=== PATIENT | female | born 1950 | race Caucasian/White ===

== ENCOUNTER → 2019-01-28 | Outpatient (CLI) | payer MEDICARE, OTHER ==
[2019-01-28 08:19] LABS: BASOPHILS % (AUTO) 1 % (0-10); EOSINOPHILS # (AUTO) 0.3 10^3/uL (0.0-0.3); EOSINOPHILS % (AUTO) 7 % (0-10); HEMATOCRIT 44 % (35-52); HEMOGLOBIN 14.8 G/DL (11.5-16.0); LYMPHOCYTES # (AUTO) 1.1 X 10^3 (1.0-4.0); LYMPHOCYTES % (AUTO) 22 % (12-44); MEAN CORPUSCULAR HEMOGLOBIN 31 PG (25-34); MEAN CORPUSCULAR HGB CONC 34 G/DL (32-36); MEAN CORPUSCULAR VOLUME 92 FL (80-99); MEAN PLATELET VOLUME 9.5 FL (7.4-10.4); MONOCYTES # (AUTO) 0.5 X 10^3 (0.0-1.0); MONOCYTES % (AUTO) 10 % (0-12); NEUTROPHILS % (AUTO) 61 % (42-75); PLATELET COUNT 190 10^3/uL (130-400); RED CELL DISTRIBUTION WIDTH 13.5 % (10.0-14.5)
[2019-01-28 08:41] LABS: ALANINE AMINOTRANSFERASE 23 U/L (0-55); ALKALINE PHOSPHATASE 66 U/L (40-136); BILIRUBIN,TOTAL 0.6 MG/DL (0.1-1.0); BUN/CREATININE RATIO 18; CALCIUM 9.7 MG/DL (8.5-10.1); CARBON DIOXIDE 21 MMOL/L (21-32); CHLORIDE 110 MMOL/L (98-107); CREATININE SERUM 0.84 MG/DL (0.60-1.30); GFR ESTIMATED > 60; GLUCOSE 79 MG/DL (70-105); POTASSIUM 4.5 MMOL/L (3.6-5.0); SODIUM 140 MMOL/L (135-145); TOTAL PROTEIN 7.2 GM/DL (6.4-8.2)
--- NOTE | 2019-01-28 11:02 | Diagnostic Imaging Report ---
INDICATION: Breast cancer and treatment COMPARISON: 01/09/2017 FINDINGS: AP Spine L1-L4: [BMD (g/cm2): 0.976] [T-Score: -1.9] [Z-Score: -0.9] [BMD Previous: na] [BMD % Change: na] LT Hip Neck: [BMD (g/cm2): 0.870] [T-Score: -1.2] [Z-Score: -0.1] LT Hip Total: [BMD (g/cm2):0.917] [T-Score:-0.7] [Z-Score: 0.1] [BMD Previous: na] [BMD % Change: na] RT Hip Neck: [BMD (g/cm2):0.817] [T-Score:-1.6] [Z-Score:-0.5] RT Hip Total: [BMD (g/cm2):0.874] [T-score:-1.1] [Z-Score:-0.2] [BMD Previous:na] [BMD % Change:na] *Indicates significant change from prior examination based on 95% confidence level. World Health Organization criteria for BMD interpretation classify patients as Normal (T-score at or above -1.0), Osteopenic (T-score between -1.0 and -2.5) or Osteoporotic (T-score at or below -2.5). LIMITATIONS AND MODIFICATION: None. FRACTURE RISK (FRAX SCORE): The ten year probability of (%): Major Osteoporotic Fracture: [9.5] Hip Fracture: [1.2] IMPRESSION: 1. Osteopenia (Low bone mass). 2. Due to differences in equipment utilized between examinations, direct quantitative comparison is not possible to assess for interval change in bone mineral density. 3. See below National Osteoporosis Foundation guidelines on when to potentially initiate pharmacologic therapy. Based on the National Osteoporosis Foundation Guidelines, pharmacologic treatment should be initiated in any of the following, unless clinical conditions suggest otherwise: * Any patient with prior fragility fracture of the hip or vertebrae. A spine fracture indicates 5X risk for subsequent spine fracture and 2X risk for subsequent hip fracture. * Osteoporosis (T-score <-2.5). * Postmenopausal women and men age 50 and older with low bone mass/osteopenia (T-score between -1.0 and -2.5) by DXA and 10-year major osteoporotic fracture greater than 20% or a 10-year probability of hip fracture greater than 3%. These fracture risks are supplied above in the FRAX score, if applicable. * Clinician judgement and/or patient preferences may indicate treatment for people with 10-year fracture probabilities above or below these levels. Dictated by: Dictated on workstation # [id number]
== END ==
LOC: RAD 07:58
PROVIDERS: ATTEND Internal Medicine Hematology & Oncology
DX: C50.912 Malignant neoplasm of unspecified site of left female breast (principal); M85.89 Other specified disorders of bone density and structure, multiple sites
CPT/HCPCS: 36415; 77080; 80053; 83615; 85025; 86300

== ENCOUNTER → 2019-04-15 | Outpatient (CLI) | payer MEDICARE, OTHER ==
--- NOTE | 2019-04-15 10:41 | Diagnostic Imaging Report ---
INDICATION: Chronic knee pain. Three views were obtained. FINDINGS: There is [id number] three-compartment osteoarthritic change. This includes loss of joint space, subchondral sclerosis, and marginal osteophytosis. There is no fracture or dislocation. Soft tissues are unremarkable. IMPRESSION: Moderately severe three-compartment osteoarthritic change. Dictated by: Dictated on workstation # [id number]
== END ==
LOC: RAD FS 10:09
PROVIDERS: ATTEND Nurse Practitioner
DX: M17.11 Unilateral primary osteoarthritis, right knee (principal)
CPT/HCPCS: 73562

== ENCOUNTER → 2019-07-22 | Outpatient (CLI) | payer MEDICARE, OTHER ==
[2019-07-22 10:42] LABS: HEMATOCRIT 43 % (35-52); HEMOGLOBIN 14.3 G/DL (11.5-16.0); MEAN CORPUSCULAR HEMOGLOBIN 30 PG (25-34); MEAN CORPUSCULAR VOLUME 91 FL (80-99); WHITE BLOOD COUNT 5.9 10^3/uL (4.3-11.0)
[2019-07-22 10:43] LABS: BASOPHILS % (AUTO) 1 % (0-10); EOSINOPHILS # (AUTO) 0.3 10^3/uL (0.0-0.3); EOSINOPHILS % (AUTO) 5 % (0-10); LYMPHOCYTES # (AUTO) 1.8 X 10^3 (1.0-4.0); LYMPHOCYTES % (AUTO) 29 % (12-44); MEAN CORPUSCULAR HGB CONC 34 G/DL (32-36); MEAN PLATELET VOLUME 8.9 FL (7.4-10.4); MONOCYTES # (AUTO) 0.5 X 10^3 (0.0-1.0); MONOCYTES % (AUTO) 9 % (0-12); NEUTROPHILS # (AUTO) 3.3 X 10^3 (1.8-7.8); NEUTROPHILS % (AUTO) 56 % (42-75); PLATELET COUNT 277 10^3/uL (130-400); RED CELL DISTRIBUTION WIDTH 13.4 % (10.0-14.5)
[2019-07-22 11:04] LABS: ALANINE AMINOTRANSFERASE 27 U/L (0-55); ALKALINE PHOSPHATASE 49 U/L (40-136); BILIRUBIN,TOTAL 0.4 MG/DL (0.1-1.0); BUN/CREATININE RATIO 17; CARBON DIOXIDE 25 MMOL/L (21-32); CHLORIDE 103 MMOL/L (98-107); CREATININE SERUM 0.87 MG/DL (0.60-1.30); GFR ESTIMATED > 60; GLUCOSE 82 MG/DL (70-105); POTASSIUM 4.5 MMOL/L (3.6-5.0); SODIUM 140 MMOL/L (135-145); TOTAL PROTEIN 6.8 GM/DL (6.4-8.2)
[2019-07-22 11:05] LABS: ALBUMIN 4.2 GM/DL (3.2-4.5)
== END ==
LOC: LAB FS 09:28
PROVIDERS: ATTEND Internal Medicine Hematology & Oncology
DX: C50.412 Malignant neoplasm of upper-outer quadrant of left female breast (principal)
CPT/HCPCS: 36415; 80053; 83615; 85025; 86300

== ENCOUNTER → 2020-06-15 | Outpatient (CLI) | payer MEDICARE, OTHER ==
--- NOTE | 2020-06-15 14:33 | Diagnostic Imaging Report ---
INDICATION: Right foot pain AP, oblique, lateral views of the right foot are obtained. No acute fracture or acute bony abnormality seen. There is mild degenerative change throughout the interphalangeal joints. There is moderate degenerative change of 1st MTP joint. There is degenerative change of the ankle joint. Previous fixation screws in the distal tibia across the medial malleolus is noted. IMPRESSION: Degenerative and postoperative findings as described above with no acute appearing abnormality. Dictated by: Dictated on workstation # [id number]
== END ==
LOC: RAD FS 10:31
PROVIDERS: ATTEND Nurse Practitioner
DX: M19.071 Primary osteoarthritis, right ankle and foot (principal)
CPT/HCPCS: 73630

== ENCOUNTER → 2021-02-01 | Outpatient (CLI) | payer MEDICARE, OTHER ==
--- NOTE | 2021-02-01 13:12 | Diagnostic Imaging Report ---
INDICATION: Postmenopausal state. COMPARISON: 01/28/2019 FINDINGS: AP Spine L1-L4: [BMD (g/cm2): 1.153] [T-Score: -0.4] [Z-Score: 0.9] [BMD Previous: 0.976] [BMD % Change: 18.1] LT Hip Neck: [BMD (g/cm2): 0.846] [T-Score: -1.4] [Z-Score: 0.0] LT Hip Total: [BMD (g/cm2):0.938] [T-Score:-0.6] [Z-Score: 0.6] [BMD Previous: 0.917] [BMD % Change: 2.3] RT Hip Neck: [BMD (g/cm2):0.936] [T-Score:-0.7] [Z-Score:0.7] RT Hip Total: [BMD (g/cm2):0.952] [T-score:-0.4] [Z-Score:0.7] [BMD Previous:0.874] [BMD % Change:8.9] *Indicates significant change from prior examination based on 95% confidence level. World Health Organization criteria for BMD interpretation classify patients as Normal (T-score at or above -1.0), Osteopenic (T-score between -1.0 and -2.5) or Osteoporotic (T-score at or below -2.5). LIMITATIONS AND MODIFICATION: None. FRACTURE RISK (FRAX SCORE): The ten year probability of (%): Major Osteoporotic Fracture: [9.5] Hip Fracture: [1.3] IMPRESSION: 1. Osteopenia (Low bone mass). 2. No significant change in bone mineral density since prior examination. 3. See below National Osteoporosis Foundation guidelines on when to potentially initiate pharmacologic therapy. Based on the National Osteoporosis Foundation Guidelines, pharmacologic treatment should be initiated in any of the following, unless clinical conditions suggest otherwise: * Any patient with prior fragility fracture of the hip or vertebrae. A spine fracture indicates 5X risk for subsequent spine fracture and 2X risk for subsequent hip fracture. * Osteoporosis (T-score <-2.5). * Postmenopausal women and men age 50 and older with low bone mass/osteopenia (T-score between -1.0 and -2.5) by DXA and 10-year major osteoporotic fracture greater than 20% or a 10-year probability of hip fracture greater than 3%. These fracture risks are supplied above in the FRAX score, if applicable. * Clinician judgement and/or patient preferences may indicate treatment for people with 10-year fracture probabilities above or below these levels. Dictated by: Dictated on workstation # [id number]
== END ==
LOC: RAD 12:30
PROVIDERS: ATTEND Internal Medicine Hematology & Oncology
DX: M85.80 Other specified disorders of bone density and structure, unspecified site (principal); C50.412 Malignant neoplasm of upper-outer quadrant of left female breast; Z78.0 Asymptomatic menopausal state
CPT/HCPCS: 77080

== ENCOUNTER → 2022-04-28 | Outpatient (CLI) | payer MEDICARE, OTHER ==
--- NOTE | 2022-04-28 12:43 | Diagnostic Imaging Report ---
HISTORY: Right knee pain, contusion, fall. TECHNIQUE: 3 views of the right knee COMPARISON: 04/15/2019 FINDINGS: No acute fracture or dislocation is seen in the right knee. There are severe degenerative changes in the medial and patellofemoral compartments. There is a small right knee joint effusion. There is moderate degenerative change in the lateral compartment. Alignment appears normal. IMPRESSION: 1. Advanced degenerative changes in the right knee with no acute fracture seen. 2. Small right knee joint effusion. Dictated by: Dictated on workstation # [id number]
== END ==
LOC: RAD FS 08:44
PROVIDERS: ATTEND Nurse Practitioner
DX: M17.11 Unilateral primary osteoarthritis, right knee (principal); S80.01XA Contusion of right knee, initial encounter; W19.XXXA Unspecified fall, initial encounter
CPT/HCPCS: 73562

== ENCOUNTER → 2022-09-06 | Outpatient (CLI) | payer MEDICARE, OTHER ==
[~2022-09-06] VITALS: Ht 167.6 cm; Wt 77.8 kg
[~2022-09-06] MED LIST: ACET-2650 PO; CALC1TAB PO; DOCU-143 PO; FAMO20TA3 PO; IBUP-2380 PO; LEVO150C4 PO; LORA10TA7 PO; LOSA100T57 PO; MAGN250T35 PO; METO50TA7 PO; MULT-1136 PO; OMEG1CAP58 PO; POTA10CA44 PO; RT-ALBUINH INH; TRM50T PO; TRZ50T PO; VITA1CAP PO
[2022-09-06 10:43] VITALS: BP 153/82
[2022-09-06 11:19] LABS: BILIRUBIN,URINE NEGATIVE (NEGATIVE); CLARITY,URINE CLEAR; COLOR,URINE YELLOW; GLUCOSE, URINE (UA) NEGATIVE (NEGATIVE); KETONES,URINE NEGATIVE (NEGATIVE); LEUKOCYTE ESTERASE ,URINE NEGATIVE (NEGATIVE); NITRITE,URINE NEGATIVE (NEGATIVE); PROTEIN,URINE NEGATIVE (NEGATIVE)
[2022-09-06 11:19] LABS: BASOPHILS # (AUTO) 0.1 10^3/uL (0.0-0.1); BASOPHILS % (AUTO) 1 % (0-10); EOSINOPHILS # (AUTO) 0.2 10^3/uL (0.0-0.3); EOSINOPHILS % (AUTO) 5 % (0-10); HEMATOCRIT 42 % (35-52); HEMOGLOBIN 14.1 g/dL (11.5-16.0); LYMPHOCYTES # (AUTO) 1.5 10^3/uL (1.0-4.0); LYMPHOCYTES % (AUTO) 30 % (12-44); MEAN CORPUSCULAR HEMOGLOBIN 31 pg (25-34); MEAN CORPUSCULAR HGB CONC 34 g/dL (32-36); MEAN CORPUSCULAR VOLUME 90 fL (80-99); MEAN PLATELET VOLUME 8.9 fL (9.0-12.2); MONOCYTES # (AUTO) 0.4 10^3/uL (0.0-1.0); MONOCYTES % (AUTO) 8 % (0-12); NEUTROPHILS # (AUTO) 2.9 10^3/uL (1.8-7.8); NEUTROPHILS % (AUTO) 56 % (42-75); PLATELET COUNT 224 10^3/uL (130-400); WHITE BLOOD COUNT 5.1 10^3/uL (4.3-11.0)
--- NOTE | 2022-09-06 11:23 | Physical Therapy Pre-Op Eval ---
PT Pre-Surgical Assessment Type of Surgery Type of Surgery: Prior Level of Function Current Living Status: Alone Locomotion (Upon Admit): Independent Distance: unlimited PLOF DME: None Subjective Subjective Patient expresses concern about using the FWW. She was educated on the benefits of using in s/p right TKA and the possible progression to cane and eventually no AD. Home: Single Level Current Living Status: Alone Entry Into Home: Stairs With Railing, Stairs Without Railing Steps Into Home: 3 Motor Control Motor Control: Motor Control WNL ROM ROM: WFL, except focal deficit Strength Strength: WFL Transfers Transfers (B, C, W/C) (FIM): 6 Gait Gait (FIM): 6 Gait Distance (FIM): 50 Distance: 50 Gait Assistive Device: FWW Right Lower Extremity: Right Full Weight Bearing Left Lower Extremity: Left Full Weight Bearing Treatment Rendered Treatment: Patient instructed in assistive device, supported ambulation. Patient instructed in and given written program of ROM and strengthening exercises to be preformed post-op. Patient instructed in movement precautions where applicable. Patient demonstrates understandings of post-operative therapy protocol including gait pattern and exercise program. Pre-operative instruction completed; await physical therapy orders after surgery. Treatment Goal Met: Yes Assessment Goals Acheived: I Ambulation w/ FWW, Understands P-op Precaut, I Post-op Exercises Charges/GCodes Time In: 1032 Time Out: 1042 Total Billed Treatment Time: 10 Total Billed Treatment Visit, JAROCHO BRITO PT Sep 06, 2022 11:23
[2022-09-06 11:38] LABS: BACTERIA,URINE NEGATIVE /HPF
[2022-09-06 11:39] LABS: AMORPHOUS SEDIMENT,UR RARE AMOR PHOSPHATE /LPF
[2022-09-06 11:40] LABS: CALCIUM 9.7 MG/DL (8.5-10.1); INR 0.9 (0.8-1.4); PROTHROMBIN TIME PATIENT 13.1 SEC (12.2-14.7)
[2022-09-06 11:41] LABS: TOTAL PROTEIN 6.9 GM/DL (6.4-8.2)
[2022-09-06 11:43] LABS: BILIRUBIN,TOTAL 0.4 MG/DL (0.1-1.0); ERYTHROCYTE SEDIMENTATION RATE 9 MM/HR (0-30)
[2022-09-06 11:44] LABS: CREATININE SERUM 0.82 MG/DL (0.60-1.30)
--- NOTE | 2022-09-06 13:03 | Diagnostic Imaging Report ---
INDICATION: RIGHT KNEE OSTEOARTHRITIS. Preoperative evaluation prior to knee replacement. COMPARISON: None FINDINGS: Frontal and lateral views of the chest demonstrate normal heart size and pulmonary vascularity. The lungs appear mildly hyperinflated, but are otherwise clear. There are no signs of infiltrate, pleural effusions or pneumothoraces. The visualized osseous structures show no acute abnormalities. IMPRESSION: 1. No acute process. No signs of infiltrates, effusions or pneumothoraces. 2. Probable background chronic obstructive pulmonary changes. Dictated by: Dictated on workstation # [id number]
== END ==
LOC: PREOP 05:30
PROVIDERS: ATTEND Orthopaedic Surgery
DX: Z01.818 Encounter for other preprocedural examination (principal); M17.11 Unilateral primary osteoarthritis, right knee
CPT/HCPCS: 36415; 71046; 80053; 81000; 82308; 85025; 85610; 85652; 86850; 86900; 86901; 87081

== ENCOUNTER 2022-09-13 05:50 | Inpatient (IN) | payer MEDICARE, OTHER ==
--- NOTE | 2022-09-06 08:24 | HISTORY AND PHYSICAL ---
ADMISSION HISTORY AND PHYSICAL This will be for inpatient admission for right total knee arthroplasty on 09/13/2022. The patient will require regular inpatient admission due to comorbidities, need for physical therapy and pain management. HISTORY OF PRESENT ILLNESS: The patient is a 72-year-old female with longstanding known osteoarthritis of her right knee. She has been treated with steroids and hyaluronic acid injections with temporary relief. She has also taken anti-inflammatories. She had a tibial fracture many years ago, which was treated with closed reduction and cast application. She reports pain in her knee gets worse on the medial aspect. She denies radicular symptoms, although she has had some sciatica in the past. Radiographs reveal complete loss of medial and patellofemoral joint spaces and her tibia demonstrates a well healed midshaft tibia fracture. REVIEW OF SYSTEMS: No chest pain, no shortness of breath. No dysuria. PAST SURGICAL HISTORY: Lumpectomy, left breast, cataract removal, tonsillectomy, bowel resection, cholecystectomy, hysterectomy, ankle surgery, right knee. PAST MEDICAL HISTORY: Benign hypertension, dilated cardiomyopathy, dyslipidemia, coronary artery disease, depression, hypothyroidism, emphysema. FAMILY HISTORY: Noncontributory. PRIMARY CARE PROVIDER: Dr. Crandall. MEDICATIONS: Naproxen, tramadol, Symbicort, omega 3, metoprolol, losartan, Benadryl, Prolia, Cozaar, calcium, trazodone, levothyroxine, albuterol, Toprol, potassium, anastrozole. ALLERGIES: CODEINE, MORPHINE, FENTANYL, SULFA. SOCIAL HISTORY: The patient is a former smoker. Denies alcohol use. PHYSICAL EXAMINATION: GENERAL: The patient is well-developed, well-nourished, in no acute distress. HEENT: Normocephalic, atraumatic. Pupils are equal, round and reactive to light. Oropharynx is clear. NECK: Supple. No lymphadenopathy. LUNGS: Clear to auscultation bilaterally. HEART: Regular rate and rhythm. ABDOMEN: Soft, nontender, nondistended. EXTREMITIES: The right knee demonstrates no skin lesions. She has a moderate effusion. She is tender along her medial femoral epicondyle. She has pain medially with Tiana's. There is no varus or valgus laxity. Negative anterior and posterior drawer. Range of motion is 0/2/120. The patient ambulates with an antalgic gait. IMPRESSION: Right knee osteoarthritis, unresponsive to conservative measures. PLAN: Right total knee arthroplasty. The risks, benefits, options, ramifications and recovery have been discussed at length with the patient. She understands and wishes to proceed. Job ID: [id number] DocumentID: [id number] Dictated Date: 08/24/2022 08:14:56 Rice Farmer Date: 08/24/2022 10:01:00 Dictated By: JUVENAL ALCANTARA MD
[~2022-09-13] VITALS: Ht 167.6 cm; Wt 77.8 kg
[2022-09-13] VITALS (11 sets, daily range): BP systolic 141–173; BP diastolic 67–93
--- OUTSIDE RECORDS SUMMARY | 2022-09-13 05:54 | XMS REPORT ---
Author Author [facility] Address Unknown Phone Unavailable Care Team Providers Care Slate Handler Name Role Phone KIM TRIPLETT Unavailable PROBLEMS Type Condition ICD9-CM Code [id number] Code Onset Dates Condition S tatus W/U Status Risk SNOMED Code Notes Problem DCM (dilated cardiomyopathy) I42.0 Jun, confirmed [id number] -693624_Migrated Problem Leukopenia due to antineoplastic chemotherapy D70. 1 Aug, confirmed [id number] -693624_Migrated Problem Malignant neoplasm of central portion of left female b reast C50.112 Jun, confirmed [id number] -693624_Migrate d Problem Acquired hypothyroidism E03.9 Dec, confirm ed [id number] -693624_Migrated Problem Benign hypertension I10 confirmed 07995063 Problem Dyslipidemia E78.5 confirmed 4466435 07 Problem Panlobular emphysema J43.1 confirmed 0164233 Problem Elevated blood pressure read ing in office with diagnosis of hypertension I10 confirmed 57243830 Problem H/O left mastectomy Z90.12 Jun, confirmed 180322142 -693624_Migrated Problem COPD exacerbation J44.1 confirmed 19 4752803 Problem Coronary atherosclerosis I25.10 confirmed 448652353 -693624_Migrated Problem 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 777052 00 Problem Arteriosclerosis of coronary artery I25.10 confirmed [id number] Problem Degenerative disease of nervous system G31.9 confirmed Problem Osteoarthritis of right knee M17.11 Jan, confirmed [id number] ALLERGIES Allergen (clinical drug ingredient) Drug/Non Drug Allergy do cumented on EMR Reaction Allergy Type Onset Date Status sulfamethoxazole / trimethoprim Bactrim([facility] Code:[address]-37) Unknown Drug Allergy Active carvedilol Carvedilol shortness of breath Drug Allergy Act kael fentanyl Fentanyl([facility] Code:[address]-21) nausea and vomiting Drug Allergy Active morphine Morphine Sulfate([facility] Code:[address]-53) anaphylaxis Drug Allergy Active ENCOUNTERS from 1950 to 2022-08-10 Encounter Location Date [facility] [address] [facility] [id number] [place] [address] Aug, BRIGANTINE SELF IMMUNIZATIONS Vaccine Route Administration Date Status PRIVATE FLUZONE HIGH DOSE QUAD 0.7ML (65 and UP) 2020 IM Int ramuscular Feb 28, 2021 Administered COVID-19 Moderna (history) Unknown August 10, 2020 Admin istered COVID-19 Moderna (history) Unknown Jul 13, 2020 Admin istered PRIVATE FLUZONE HIGH DOSE QUAD 0.7ML (65 and UP) 2019 IM Int ramuscular Feb 25, 2020 Administered PRIVATE FLUZONE HIGH DOSE 0.5ML (65 and UP) 2018 IM Intramuscula r Mar 06, 2019 Administered PRIVATE PCV 13 (PREVNAR) Unknown Jul 16, 2017 Adminis tered 1st Booster MODERNA COVID-19, mRNA, 0.25mL Unknown November 21, 2021 Refused PRIVATE ZOSTAVAX (HERPES ZOSTER) Unknown September 11, 2012 Administered PRIVATE HIGH DOSE FLU 22-23 (FLUZONE HD) AGE 65YRS AND UP IM Intramuscular Feb 22, 2022 Administered PRIVATE PPSV23 (PNEUMOVAX) IM Intramuscular Mar 06, 2019 Admi nistered PRIVATE PPSV23 (PNEUMOVAX) Unknown October 13, 2009 Admin istered SOCIAL HISTORY Sex Assigned At : Social History Observation Description Sex Assigned At Unknown PHQ2 Question Answer Notes In the last 2 weeks, how often have you had little interest or pleasure in doing things? Not at all In the last 2 weeks, how often have you been feeling down, depressed, or hopeless? Not at all Total PHQ2 Score 0 REASON FOR REFERRAL No Information VITAL SIGNS No information MEDICATIONS Medication SIG (Take, Route, Frequency, Duration) Notes Start Da te End Date Status Benadryl Allergy 25 MG 1 capsule as needed Orally every 8 hrs Active Metoprolol Succinate 25 MG 1 capsule Orally Once a day takes with 5 0 at night Active traZODone HCl 50 MG TAKE 1 TABLET BY MOUTH AT BEDTIME FOR 90 DAYS for 90 Active Flovent HFA 110 MCG/ACT INHALE TWO (2) PUFFS TWICE A DAY- RINSE AFTER USE for 30 Active Multi Vitamin - 1 tablet Orally Once a day Active Levothyroxine Sodium 150 MCG Take 1 tablet by mouth on ce daily for 90 days for 90 Active Losartan Potassium 100 MG Take 1 tablet by mouth once daily for 90 Active Ibuprofen 200 MG 1 tablet with food or milk as needed Ora lly Three times a day Active Tylenol Arthritis Pain prn Ac tive Metoprolol Succinate 50 MG 1 capsule Orally at bedtime along with 2 5 mg in am Active [place] 3 1000 MG 1 capsule Orally Once a day for 30 day(s ) Pt stated she takes 500 mg in am and 500 mg in pm Active Calcium 500 MG 1 tablet with meals Orally Twice a day for 30 day(s) Active Vitamin B Complex - as directed Orally Active Potassium Chloride ER 10 MEQ TAKE ONE (1) TABLET BY [facility] TWICE DAILY WITH MEALS for 90 Active traMADol HCl 50 MG 1-2 tablet as needed Orally 3 times a day for 28 days M17.11 Jun, Active Claritin 10 MG 1 tablet Orally Once a day for 30 day(s) Active Magnesium 250 MG 1 tablet with a meal Orally Once a day Active Famotidine 40 MG 1 tablet at bedtime Orally Once a day Active Albuterol Sulfate HFA 108 (90 Base) MCG/ACT 1 puff as needed Inhalation every 4 hrs for 15 days Jul, Active PROCEDURES No Information RESULTS No Results REASON FOR VISIT Re:RE:New Refill Request MEDICAL (GENERAL) HISTORY Type Description Date Medical History Benign hypertension Medical History Dilated cardiomyopathy Medical History Dyslipidemia Medical History Arteriosclerosis of coronary artery Medical History Depression Medical History Other specified acquired hypothyroidism Medical History Acquired autoimmune hypothyroidism Medical History 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 Medical History Panlobular emphysema Medical History Obesity Medical History Leukoaraiosis Medical History Cerebral atrophy Surgical History lumpectomy, left breast Surgical History cataract removal in both eyes August 2018 Surgical History tonsillectomy and adenoidectomy Surgical History bowel resection Surgical History cholecystectomy Surgical History hysterectomy Surgical History ankle surgery Surgical History breast biopsy Surgical History lag on cataracts 04/01 Hospitalization History see surgeires Goals Section No Information Health Concerns No Information MEDICAL EQUIPMENT No Information MENTAL STATUS No Information FUNCTIONAL STATUS No Information ASSESSMENTS No Information PLAN OF TREATMENT Medication Medication Name Sig Start Date Stop Date traZODone HCl 50 MG TAKE 1 TABLET BY MOUTH AT BEDTIME FOR 90 DAY S for 90 Insurance Providers Payer Name Payer Address Payer Phone Insured Name Patient Relati onship to Insured Coverage Start Date Coverage End Date Subscriber Number Group Nu mber [facility] [address] [facility] [phone] Megan Edwards Self - patient is the insured 2016 [id number] [id number] A[employer] [facility] [address] [address] [facility] [address] Megan Edwards Self - patient is the insured [id number]
--- OUTSIDE RECORDS SUMMARY | 2022-09-13 05:55 | XMS REPORT ---
Author Author [facility] Address Unknown Phone Unavailable Care Team Providers Care Archivist [employer]profit [employer] Name Role Phone NICCI HOOD Unavailable PROBLEMS Type Condition ICD9-CM Code [id number] Code Onset Dates Condition S tatus W/U Status Risk SNOMED Code Notes Problem DCM (dilated cardiomyopathy) I42.0 Jun, confirmed [id number] -693624_Migrated Problem Leukopenia due to antineoplastic chemotherapy D70. 1 Aug, confirmed 95044099 -693624_Migrated Problem Malignant neoplasm of central portion of left female b reast C50.112 Jun, confirmed 425401849 -693624_Migrate d Problem Acquired hypothyroidism E03.9 Dec, confirm ed 034528552 -693624_Migrated Problem Benign hypertension I10 confirmed 19241558 Problem Dyslipidemia E78.5 confirmed 6332879 07 Problem Panlobular emphysema J43.1 confirmed 4803892 Problem Elevated blood pressure read ing in office with diagnosis of hypertension I10 confirmed 02768217 Problem H/O left mastectomy Z90.12 Jun, confirmed 797850950 -693624_Migrated Problem COPD exacerbation J44.1 confirmed 19 8439561 Problem Coronary atherosclerosis I25.10 confirmed 724559434 -693624_Migrated Problem 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 802830 00 Problem Arteriosclerosis of coronary artery I25.10 confirmed [id number] Problem Degenerative disease of nervous system G31.9 confirmed Problem Osteoarthritis of right knee M17.11 Jan, confirmed 238805985 ALLERGIES Allergen (clinical drug ingredient) Drug/Non Drug Allergy do cumented on EMR Reaction Allergy Type Onset Date Status sulfamethoxazole / trimethoprim Bactrim([facility] Code:[address]-92) Unknown Drug Allergy Active carvedilol Carvedilol shortness of breath Drug Allergy Act kael fentanyl Fentanyl([facility] Code:[address]-36) nausea and vomiting Drug Allergy Active morphine Morphine Sulfate([facility] Code:[address]-99) anaphylaxis Drug Allergy Active ENCOUNTERS from 1950 to 2022-07-31 Encounter Location Date [facility] [id number] [place] [address] Aug, NICCI HOOD IMMUNIZATIONS Vaccine Route Administration Date Status PRIVATE [...] Notes Start Da te End Date Status Metoprolol Succinate 25 MG 1 capsule Orally Once a day takes with 5 0 at night Active Albuterol Sulfate HFA 108 (90 Base) MCG/ACT 1 puff as needed Inhalation every 4 hrs for 15 days Jul, Active Multi Vitamin - 1 tablet Orally Once a day Active Flovent HFA 110 MCG/ACT INHALE TWO (2) PUFFS TWICE A DAY- RINSE AFTER USE for 30 Active Benadryl Allergy 25 MG 1 capsule as needed Orally every 8 hrs Active Levothyroxine Sodium 150 MCG Take 1 [...] with 2 5 mg in am Active Calcium 500 MG 1 tablet with meals Orally Twice a day for 30 day(s) Active traZODone HCl 50 MG TAKE 1 TABLET BY MOUTH AT BEDTIME FOR 90 DAYS for 90 Active Vitamin B Complex - as directed Orally Active Claritin 10 MG 1 tablet Orally Once a day for 30 day(s) Active traMADol HCl 50 MG 1-2 tablet as needed Orally 3 times a day for 28 days M17.11 Jun, Active [place] 3 1000 MG 1 capsule Orally Once a day for 30 day(s ) Pt stated she takes 500 mg in am and 500 mg in pm Active Magnesium 250 MG 1 tablet with a meal Orally Once a day Active Famotidine 40 MG 1 tablet at bedtime Orally Once a day Active Potassium Chloride ER 10 MEQ TAKE ONE (1) TABLET BY [facility] TWICE DAILY WITH MEALS for 90 Active PROCEDURES No Information RESULTS No Results REASON FOR VISIT Controlled Med Refill* MEDICAL (GENERAL) HISTORY Type Description Date Medical [...] Information ASSESSMENTS No Information PLAN OF TREATMENT No Information Insurance Providers Payer Name Payer Address Payer Phone Insured Name Patient Relati onship to Insured Coverage Start Date Coverage End Date Subscriber Number Group Nu mber Aetna [facility] [address] [address] [facility] [phone] Megan Edwards Self - patient is the insured [id number] [facility] PART [facility] [address] [facility] [address] Megan Edwards Self - patient is the insured 2016 [id number] UN41
--- OUTSIDE RECORDS SUMMARY | 2022-09-13 05:55 | XMS REPORT ---
Author Author [facility] Address Unknown Phone Unavailable Care Team Providers Care Kitchen And Bath Designer Name Role Phone KIM TRIPLETT Unavailable PROBLEMS Type Condition ICD9-CM Code QIP38-ZK Code Onset Dates Condition S tatus W/U Status Risk SNOMED Code Notes Problem DCM (dilated cardiomyopathy) I42.0 Jun, confirmed [id number] -693624_Migrated Problem Leukopenia due to antineoplastic chemotherapy D70. 1 Aug, confirmed [id number] -693624_Migrated Problem Malignant neoplasm of central portion of left female b reast C50.112 Jun, confirmed [id number] -693624_Migrate d Problem Acquired hypothyroidism E03.9 Dec, confirm ed [id number] -693624_Migrated Problem Benign hypertension I10 confirmed 14468180 Problem Dyslipidemia E78.5 confirmed 6018106 07 Problem Panlobular emphysema J43.1 confirmed 8970292 Problem Elevated blood pressure read ing in office with diagnosis of hypertension I10 confirmed 14734006 Problem H/O left mastectomy Z90.12 Jun, confirmed 432258431 -693624_Migrated Problem COPD exacerbation J44.1 confirmed 19 5563311 Problem Coronary atherosclerosis I25.10 confirmed 338191414 -693624_Migrated Problem 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 844386 00 Problem Arteriosclerosis of coronary artery I25.10 confirmed [id number] Problem Degenerative disease of nervous system G31.9 confirmed Problem Osteoarthritis of right knee M17.11 Jan, confirmed [id number] ALLERGIES Allergen (clinical drug ingredient) Drug/Non Drug Allergy do cumented on EMR Reaction Allergy Type Onset Date Status sulfamethoxazole / trimethoprim Bactrim([facility] Code:[address]-05) Unknown Drug Allergy Active carvedilol Carvedilol shortness of breath Drug Allergy Act kael fentanyl Fentanyl([facility] Code:[address]-50) nausea and vomiting Drug Allergy Active morphine Morphine Sulfate([facility] Code:[address]-75) anaphylaxis Drug Allergy Active ENCOUNTERS from 1950 to 2022-08-09 Encounter [facility] Date [facility] [address] [id number] [address] Aug, [place] [facility] Vaccine Route Administration Date Status PRIVATE PCV 13 (PREVNAR) Unknown Jul 16, 2017 Adminis tered PRIVATE FLUZONE HIGH DOSE QUAD 0.7ML (65 and UP) 2019 IM Int ramuscular Feb 25, 2020 Administered PRIVATE PPSV23 (PNEUMOVAX) IM Intramuscular Mar 06, 2019 Admi nistered PRIVATE FLUZONE HIGH DOSE 0.5ML (65 and UP) 2018 IM Intramuscula r Mar 06, 2019 Administered COVID-19 Moderna (history) Unknown Jul 13, 2020 Admin istered COVID-19 Moderna (history) Unknown August 10, 2020 Admin istered PRIVATE ZOSTAVAX (HERPES ZOSTER) Unknown September 11, 2012 Administered PRIVATE FLUZONE HIGH DOSE QUAD 0.7ML (65 and UP) 2020 IM Int ramuscular Feb 28, 2021 Administered PRIVATE PPSV23 (PNEUMOVAX) Unknown October 13, 2009 Admin istered PRIVATE HIGH DOSE FLU 22-23 (FLUZONE HD) AGE 65YRS AND UP IM Intramuscular Feb 22, 2022 Administered 1st Booster MODERNA COVID-19, mRNA, 0.25mL Unknown November 21, 2021 Refused SOCIAL HISTORY Sex Assigned At : Social [...] with 2 5 mg in am Active [place] 3 1000 MG 1 capsule Orally Once a day for 30 day(s ) Pt stated she takes 500 mg in am and 500 mg in pm Active Calcium 500 MG 1 tablet with meals Orally Twice a day for 30 day(s) Active Vitamin B Complex - as directed Orally Active Potassium Chloride ER 10 MEQ TAKE ONE (1) TABLET BY [facility] TWICE DAILY WITH MEALS for 90 [...] Information RESULTS No Results REASON FOR VISIT Losartan potassium refill 100 mg daily MEDICAL (GENERAL) HISTORY Type Description Date Medical [...] Date Subscriber Number Group Nu mber [employer] [facility] [address] [address] [facility] [phone] Megan Edwards Self - patient is the insured [id number] [facility] [address] [facility] [id number] Megan Edwards Self - patient is the insured 2016 [id number] UN41
--- OUTSIDE RECORDS SUMMARY | 2022-09-13 05:55 | XMS REPORT ---
Author Author [facility] Address Unknown Phone Unavailable Care Team Providers Care House Designer Name Role Phone KIM TRIPLETT Unavailable PROBLEMS Type Condition ICD9-CM Code TOH46-TK Code Onset Dates Condition S tatus W/U Status Risk SNOMED Code Notes Problem DCM (dilated cardiomyopathy) I42.0 Jun, confirmed [id number] -693624_Migrated Problem Leukopenia due to antineoplastic chemotherapy D70. 1 Aug, confirmed 73641106 -693624_Migrated Problem Malignant neoplasm of central portion of left female b reast C50.112 Jun, confirmed 157285110 -693624_Migrate d Problem Acquired hypothyroidism E03.9 Dec, confirm ed 131329735 -693624_Migrated Problem Benign hypertension I10 confirmed 92050516 Problem Dyslipidemia E78.5 confirmed 6986512 07 Problem Panlobular emphysema J43.1 confirmed 0934902 Problem Elevated blood pressure read ing in office with diagnosis of hypertension I10 confirmed 00045306 Problem H/O left mastectomy Z90.12 Jun, confirmed 191188006 -693624_Migrated Problem COPD exacerbation J44.1 confirmed 19 4315419 Problem Coronary atherosclerosis I25.10 confirmed 044640146 -693624_Migrated Problem 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 693741 00 Problem Arteriosclerosis of coronary artery I25.10 confirmed [id number] Problem Degenerative disease of nervous system G31.9 confirmed Problem Osteoarthritis of right knee M17.11 Jan, confirmed 366860540 ALLERGIES Allergen (clinical drug ingredient) Drug/Non Drug Allergy do cumented on EMR Reaction Allergy Type Onset Date Status sulfamethoxazole / trimethoprim Bactrim([facility] Code:[address]-41) Unknown Drug Allergy Active carvedilol Carvedilol shortness of breath Drug Allergy Act kael fentanyl Fentanyl([facility] Code:[address]-84) nausea and vomiting Drug Allergy Active morphine Morphine Sulfate([facility] Code:[address]-97) anaphylaxis Drug Allergy Active ENCOUNTERS from 1950 to 2022-08-09 Encounter [facility] Date [facility] [address] [facility] [address] [id number] [place] [address] Aug, [place] [facility] Vaccine Route Administration Date Status [...] with 2 5 mg in am Active [employer] 3 1000 MG 1 capsule Orally Once a day for 30 day(s ) Pt stated she takes 500 mg in am and 500 mg in pm Active Calcium 500 MG 1 tablet with meals Orally Twice a day for 30 day(s) Active Vitamin B Complex - as directed Orally Active Potassium Chloride ER 10 MEQ TAKE ONE (1) TABLET BY [facility] TWICE DAILY WITH MEALS for 90 Active [...] Information RESULTS No Results REASON FOR VISIT New Refill Request MEDICAL (GENERAL) HISTORY Type Description [...] Date Subscriber Number Group Nu mber [employer] [facility] [address] [address] [facility] [phone] Megan Edwards Self - patient is the insured [id number] [facility] [address] [facility] [phone] Megan Edwards Self - patient is the insured 2016 [id number] UN41
--- OUTSIDE RECORDS SUMMARY | 2022-09-13 05:55 | XMS REPORT ---
Author Author [facility] Address Unknown Phone Unavailable Care Team Providers Care Shingle Inspector Name Role Phone DIXIE DUDLEY Unavailable PROBLEMS Type Condition ICD9-CM Code GAL34-GS Code Onset Dates Condition S tatus W/U Status Risk SNOMED Code Notes Problem DCM (dilated cardiomyopathy) I42.0 Jun, confirmed [id number] -693624_Migrated Problem Leukopenia due to antineoplastic chemotherapy D70. 1 Aug, confirmed 81192105 -693624_Migrated Problem Malignant neoplasm of central portion of left female b reast C50.112 Jun, confirmed 980604373 -693624_Migrate d Problem Acquired hypothyroidism E03.9 Dec, confirm ed 342918046 -693624_Migrated Problem Benign hypertension I10 confirmed 47894011 Problem Dyslipidemia E78.5 confirmed 8368051 07 Problem Panlobular emphysema J43.1 confirmed 3416212 Problem Elevated blood pressure read ing in office with diagnosis of hypertension I10 confirmed 64123458 Problem H/O left mastectomy Z90.12 Jun, confirmed 737094352 -693624_Migrated Problem COPD exacerbation J44.1 confirmed 19 1572288 Problem Coronary atherosclerosis I25.10 confirmed 234402429 -693624_Migrated Problem 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 253798 00 Problem Arteriosclerosis of coronary artery I25.10 confirmed 092957788274274 Problem Degenerative disease of nervous system G31.9 confirmed Problem Osteoarthritis of right knee M17.11 Jan, confirmed 604682444 ALLERGIES Allergen (clinical drug ingredient) Drug/Non Drug Allergy do cumented on EMR Reaction Allergy Type Onset Date Status sulfamethoxazole / trimethoprim Bactrim([facility] Code:[address]-79) Unknown Drug Allergy Active carvedilol Carvedilol shortness of breath Drug Allergy Act kael fentanyl Fentanyl([facility] Code:[address]-54) nausea and vomiting Drug Allergy Active morphine Morphine Sulfate([facility] Code:[address]-84) anaphylaxis Drug Allergy Active ENCOUNTERS from 1950 to 2022-08-01 Encounter Location Date Provider [facility] [place] [facility] [address] [id number] [address] Aug, DIXIE DUDLEY Tinea faciale B35.8 IMMUNIZATIONS Vaccine Route Administration Date Status PRIVATE FLUZONE HIGH DOSE 0.5ML (65 and UP) 2018 IM Intramuscula r Mar 06, 2019 Administered COVID-19 Moderna (history) Unknown Jul 13, 2020 Admin istered PRIVATE HIGH DOSE FLU 22-23 (FLUZONE HD) AGE 65YRS AND UP IM Intramuscular Feb 22, 2022 Administered 1st Booster MODERNA COVID-19, mRNA, 0.25mL Unknown November 21, 2021 Refused PRIVATE FLUZONE HIGH DOSE QUAD 0.7ML (65 and UP) 2020 IM Int ramuscular Feb 28, 2021 Administered COVID-19 Moderna (history) Unknown August 10, 2020 Admin istered PRIVATE PPSV23 (PNEUMOVAX) IM Intramuscular Mar 06, 2019 Admi nistered PRIVATE PCV 13 (PREVNAR) Unknown Jul 16, 2017 Adminis tered PRIVATE FLUZONE HIGH DOSE QUAD 0.7ML (65 and UP) 2019 IM Int ramuscular Feb 25, 2020 Administered PRIVATE ZOSTAVAX (HERPES ZOSTER) Unknown September 11, 2012 Administered PRIVATE PPSV23 (PNEUMOVAX) Unknown October 13, [...] REASON FOR REFERRAL No Information VITAL SIGNS Height 66 in Aug, Height-cm 167.64 cm Aug, Weight 175 lbs Aug, Weight-kg 79.38 kg Aug, Temperature 96.9 degrees Fahrenheit Aug, Heart Rate 92 bpm Aug, Respiratory Rate 20 bpm Aug, Oximetry 96 % Aug, BMI 28.24 kg/m2 Aug, Blood pressure systolic 146 mmHg Aug, Blood pressure diastolic 82 mmHg Aug, MEDICATIONS Medication SIG (Take, Route, Frequency, Duration) [...] with 2 5 mg in am Active [place] 3 1000 MG 1 capsule Orally Once a day for 30 day(s ) Pt stated she takes 500 mg in am and 500 mg in pm Active Calcium 500 MG 1 tablet with meals Orally Twice a day for 30 day(s) Active Vitamin B Complex - as directed Orally Active Potassium Chloride ER 10 MEQ TAKE ONE (1) TABLET BY [facility] TWICE DAILY WITH MEALS for 90 Active [...] Information RESULTS No Results REASON FOR VISIT ring worm on face x 2 week 96.9, OTC athlete foot cream MEDICAL (GENERAL) HISTORY Type Description Date Medical [...] No Information FUNCTIONAL STATUS No Information ASSESSMENTS Encounter Date Diagnosis Assessment Notes Treatment Notes Treatm ent Clinical Notes Aug, Tinea faciale (ICD-10 - B35.8) C ontinue OTC clotrimazole BID. Take your medicines exactly as directed on label. Call your doctor if you have any problems with your medicine. Wash the rash with soap and water, remove flaky skin, and dry thoroughly. Try an bccf-xwn-ufpmcdf cream with clotrimazole or miconazole in it. Brand names include Lotrimin, Micatin, and Tinactin. Terbinafine cream (Lamisil) is also available without a prescription. Spread the cream beyond the edge or border of the rash. Follow the directions on the package. Do not stop using the medicine just because your skin clears up. You will probably need to continue treatment for 2 to 4 weeks. To keep from getting another infection: Do not wear tight clothes or let your skin stay damp for long periods, such as by staying in a wet bathing suit or sweaty clothes. Call your doctor now or seek immediate medical care if: You have signs of infection such as: Pain, warmth, or swelling in your skin. Red streaks near a wound in the skin. Pus coming from the rash on your skin. A fever. Watch closely for changes in your health, and be sure to contact your doctor if: Your ringworm does not improve after 4 weeks of treatment. You do not get better as expected., Ringworm: Care Instructions material was published, Aug, Other Pain control wit h tylenol or motrin. Medications as advised/prescribed. Rest as able. Push fluids to maintain hydration. Supportive care and monitoring. Office visit if not improving or if symptoms worsen. PLAN OF TREATMENT Medication Medication Name Sig Start Date Stop Date traZODone HCl 50 MG TAKE 1 TABLET BY MOUTH AT BEDTIME FOR 90 DAY S for 90 Treatment Notes Assessment Notes Clinical Notes Tinea faciale Continue OTC clotrimazole BI D. Take your medicines exactly as directed on label. Call your doctor if you have any problems with your medicine. Wash the rash with soap and water, remove flaky skin, and dry thoroughly. Try an lfor-cdc-rkderms cream with clotrimazole or miconazole in it. Brand names include Lotrimin, Micatin, and Tinactin. Terbinafine cream (Lamisil) is also available without a prescription. Spread the cream beyond the edge or border of the rash. Follow the directions on the package. Do not stop using the medicine just because your skin clears up. You will probably need to continue treatment for 2 to 4 weeks. To keep from getting another infection: Do not wear tight clothes or let your skin stay damp for long periods, such as by staying in a wet bathing suit or sweaty clothes. Call your doctor now or seek immediate medical care if: You have signs of infection such as: Pain, warmth, or swelling in your skin. Red streaks near a wound in the skin. Pus coming from the rash on your skin. A fever. Watch closely for changes in your health, and be sure to contact your doctor if: Your ringworm does not improve after 4 weeks of treatment. You do not get better as expected., Ringworm: Care Instructions material was published, Next Appt Details if not improving with pcp or regular fo llow up . if not improving with PCP or reg follow up Reason: Insurance Providers Payer Name Payer Address Payer Phone Insured Name Patient Relati onship to Insured Coverage Start Date Coverage End Date Subscriber Number Group Nu mber [employer] [address] [address] [facility] [phone] Megan Edwards [place] Self - patient is the insured [id number] [facility] PART [address] FI [address] [facility] [address] JerryMegan Chula Self - patient is the insured 2016 [id number] UN41
[2022-09-13] MEDS ORDERED: CEFUROXIME INJECTION 1,500 MG in NS (IVPB) 50 ML IV ONE (06:15)
[2022-09-13] MEDS: LACTATED RINGERS 1,000 ML IV PRN ×2 (06:35→07:39)
[2022-09-13] MEDS ORDERED: NS (IVPB) 50 ML ONE (06:36)
[2022-09-13] MEDS ORDERED: CEFUROXIME 1.5 GM/15 ML (ZINACEF) VIAL ONE (06:36)
[2022-09-13] MEDS ORDERED: ROPIVACAINE 5MG/ML 30ML VIAL ONE (06:53)
[2022-09-13] MEDS ORDERED: LIDOCAINE PF 2% 5 ML (XYLOCAINE) VIAL ONE (06:53)
[2022-09-13] MEDS ORDERED: MIDAZOLAM 2 MG/2 ML (VERSED) VIAL ONE (06:53)
[2022-09-13] MEDS ORDERED: MEPERIDINE (DEMEROL) INJ 50 MG/ML ONE ×2 (06:58→09:56)
[2022-09-13] MEDS ORDERED: diphenhydrAMINE 50 MG/ML INJ (BENADRYL) IVP PRN (07:15)
[2022-09-13] MEDS ORDERED: NALOXONE 0.4 MG/ML 1 ML (NARCAN) VIAL IV PRN (07:15)
[2022-09-13] MEDS ORDERED: INTRA-ARTICULAR IU ONE ×5 (07:30)
--- NOTE | 2022-09-13 07:35 | Progress Note-Post Operative ---
Post-Operative Progess Note Surgeon (s)/Automatic Clipper And Stripper (s) Surgeon JUVENAL ALCANTARA MD Automatic Clipper And Stripper: Rony Melgar Pre-Operative Diagnosis right knee primary osteoarthritis Post-Operative Diagnosis right knee primary osteoarthritis Procedure & Operative Findings Date of Procedure 09/13/22 Procedure Performed/Findings right total knee arthroplasty Anesthesia Type GETA Estimated Blood Loss Estimated blood loss (mL): minimal Specimens/Packing Specimens Removed none Packing: none JUVENAL ALCANTARA MD Sep 13, 2022 07:35
--- NOTE | 2022-09-13 07:35 | Progress Note-Pre Operative ---
Pre-Operative Progress Note Date of Available H&P: Aug 24, 2022 Date H&P Reviewed: Sep 13, 2022 Time H&P Reviewed: 07:11 Changes from last HP none Pre-Operative Diagnosis: right knee primary osteoarthritis JUVENAL ALCANTARA MD Sep 13, 2022 07:35
--- NOTE | 2022-09-13 07:37 | D/C HH Face to Face Order ---
D/C Face to Face Orders Reconcile Patient Problems Problems Reviewed?: Yes Instructions for Patient Via [employer] Patient Instructions/FollowUp: three weeks Physician to follow Patient: three weeks Discharge Diet for Home: Regular Diet Patient Data-Allergies,Ht & Wt Patient Allergies: Coded Allergies: Sulfa (Sulfonamide Antibiotics) (Verified Allergy, Unknown, RASH, 09/06/22) carvedilol (Verified Allergy, Unknown, SOA CRITICALLY HIGH, 09/06/22) fentanyl (Verified Allergy, Unknown, SEVERE PAIN WITH EMESIS, 09/06/22) morphine (Verified Allergy, Unknown, TROUBLE BREATHING, SEDATES, 09/06/22) sulfamethoxazole (Verified Allergy, Unknown, RASH, 09/06/22) trimethoprim (Verified Allergy, Unknown, RASH, 09/06/22) Home Health Need/Face to Face Date of Face to Face: Sep 13, 2022 Clinical Findings: Muscle weakness, Pain with ambulation, Unsteady gait I have seen Pt [id number]: Yes Discharged To: Home Diagnosis/Conditions: right total knee arthroplasty Patient is Homebound due to: Muscle weakness, Pain w/ambulation Homebound Status Due to the above stated illness, injury or surgical procedure (medical condition or diagnosis) and associated clinical findings, the patient is homebound because of his/her inability to leave home except with aid of a supportive device and/or person AND leaving the home requires a considerable and taxing effort or is medically contraindicated. Pt req the following assistanc: [facility] Nursing Orders Home Health Services Order: Physical Therapy-Evaluate & Treat DC right knee timi and apply steri strips 09/27/22 Home Health Infusion Therapy Line Start Date: Sep 13, 2022 Therapy Orders Therapy Orders: Physical Therapy, PT to assess for OT Therapy Specific Orders: Eval assistive deivces, Teach enviro modifications/safety, Gait training, Increase strength/endurance, Provider maintenance therapy, Restore ROM Certify Stmt I certify that this patient is under my care and that I, a nurse practitioner or a physician; a video library assistant working with me, had a face to face encounter that - meets the physician face to face encounter requirements with this patient as dated. JUVENAL ALCANTARA MD Sep 13, 2022 07:37
[2022-09-13] MEDS ORDERED: TRANEXAMIC ACID 100 MG/ML 10 ML INJECTION ONE (08:11)
[2022-09-13] MEDS ORDERED: ROCURONIUM 50 MG/5 ML (ZEMURON) VIAL IV ONE (08:11)
[2022-09-13] MEDS ORDERED: hydrALAZINE (APESOLINE) 20 MG/ML VIAL ONE (08:12)
[2022-09-13] MEDS ORDERED: ATROPINE INJ 0.4 MG/ML SDV ONE (08:16)
[2022-09-13] MEDS ORDERED: EPINEPHrine INJECTION 1 MG/ML AMP ONE (08:20)
[2022-09-13] MEDS ORDERED: SEVOFLURANE (ULTANE) 15 ML INHAL SOLN ONE (08:27)
[2022-09-13] MEDS ORDERED: proPOfol 200 MG/20 ML (DIPRIVAN) VIAL IV ONE (09:05)
[2022-09-13] MEDS ORDERED: morphine INJ 10 MG/ML 1ML (SYR OR VIAL) ONE (09:27)
[2022-09-13] MEDS ORDERED: ONDANSETRON 4 MG/2 ML (SDV) Z0FRAN ONE (09:27)
[2022-09-13] MEDS ORDERED: MEPERIDINE (DEMEROL) INJ 50 MG/ML IVP ONE (09:30)
[2022-09-13] MEDS ORDERED: morphine INJ 10 MG/ML 1ML (SYR OR VIAL) IVP ONE (09:30)
[2022-09-13] MEDS ORDERED: ONDANSETRON 4 MG/2 ML (SDV) Z0FRAN IVP PRN (09:30)
[2022-09-13] MEDS ORDERED: ACETAMINOPHEN ER 650 MG (TYLENOL ARTHRITIS) PO PRN (10:45)
[2022-09-13] MEDS ORDERED: RT-ALBUTEROL HFA 8.5 GM INHALER IH SCH (11:15)
[2022-09-13] MEDS ORDERED: LEVO150T6 PO (11:51)
[2022-09-13] MEDS ORDERED: DOCU100C37 PO (11:51)
[2022-09-13] MEDS ORDERED: TRAM50TA3 PO (11:51)
[2022-09-13] MEDS ORDERED: FLT11013 INH (11:51)
--- NOTE | 2022-09-13 12:18 | Progress Note ---
Standard Progress Note Progress Notes/Assess & Plan Date Seen by a Provider: Sep 13, 2022 Time Seen by a Provider: 12:17 Progress/Assessment & Plan post op check no complaints radiographs--HW well positioned without fracture RLE--2 plus DP pulse with brisk cap refill intact DF and PF of toes and ankles sensation intact to light touch throughout s/p R TKA mobilize as able JUVENAL ALCANTARA MD Sep 13, 2022 12:18
[2022-09-13] MEDS: SENNA W/DOCUSATE (SENOKOT S) TABLET PO SCH ×2 (12:24→20:23)
[2022-09-13] MEDS: oxyCODONE/APAP 5/325MG (PERCOCET 5) TABLET PO PRN ×3 (12:24→23:05)
[2022-09-13] MEDS: NS IV 1000 ML 1,000 ML IV SCH ×2 (12:24→20:24)
[2022-09-13] MEDS: HYDROmorphone 2 MG/ML VIAL (DILAUDID) IVP PRN (12:25)
[2022-09-13] MEDS ORDERED: PATIENT MAY USE OWN MEDS, ALL MC SCH (12:30)
[2022-09-13] MEDS ORDERED: RT-ALBUTEROL HFA 8.5 GM INHALER IH PRN (12:45)
--- NOTE | 2022-09-13 13:09 | Diagnostic Imaging Report ---
INDICATION: Postop knee replacement COMPARISON: 04/28/2022 FINDINGS: Two views of the right knee were obtained. Expected postoperative changes are seen from right knee total arthroplasty. Femoral and tibial components appear well-seated. There is no evidence of periprosthetic fracture. There is a small amount of subcutaneous emphysema in the soft tissues over the knee. Skin timi are seen centrally over the anterior aspect of the knee. No unexpected radiopaque foreign bodies are identified. IMPRESSION: Expected postsurgical changes from right knee total arthroplasty, as described above. No unexpected radiopaque foreign bodies. Dictated by: Dictated on workstation # [id number]
[2022-09-13] MEDS: ONDANSETRON 4 MG/2 ML (SDV) Z0FRAN IVP PRN ×3 (13:11→23:05)
--- NOTE | 2022-09-13 14:00 | Consultation ---
MERNA DE SOUZA 09/13/22 1400: HPI History of Present Illness: HPI/Chief Complaint Ms. Guzman is a 72-year-old female with longstanding known osteoarthritis of her right knee with CAD, HTN, COPD, emphysema, and dilated cardiomyopathy. Pt underwent a Right TKA with no complications. At present patient is sitting up at bedside with no acute complaints. PT is in room ready to have patient stand up. Pt reports that her right leg is numb due to the nerve block. She denies any pain at this time. Pt reports that she experienced some nausea right after surgery but received zofran that helped. Pt denies any CP or SOB. No other complaints or concerns. Date Seen 09/13/22 Attending Physician Tay Crandall MD PCP Admitting Physician: Fabrizio Mayo MD Attending Physician: Fabrizio Mayo MD Referring Physician Marleny Burns Date of Admission Sep 13, 2022 at 05:50 Home Medications & Allergies Home Medications Reviewed patient Home Medication Reconciliation performed by pharmacy medication reconciliations automated access systems technician and/or nursing. Patients Allergies have been reviewed. Allergies Allergies Coded Allergies Sulfa (Sulfonamide Antibiotics) (Verified Allergy, Unknown, RASH, 09/06/22) carvedilol (Verified Allergy, Unknown, SOA CRITICALLY HIGH, 09/06/22) fentanyl (Verified Allergy, Unknown, SEVERE PAIN WITH EMESIS, 09/06/22) morphine (Verified Allergy, Unknown, TROUBLE BREATHING, SEDATES, 09/06/22) sulfamethoxazole (Verified Allergy, Unknown, RASH, 09/06/22) trimethoprim (Verified Allergy, Unknown, RASH, 09/06/22) Past Uiltpej-Upxqih-Oocmly Hx Immunizations Up To Date Date of Influenza Vaccine: Mar 29, 2023 First/Initial COVID19 Vaccinat: 07/13/2020 Second COVID19 Vaccination Brent: 08/10/2020 Seasonal Allergies Seasonal Allergies: Yes Past Medical History Surgeries: Adenoidectomy, Appendectomy, Hysterectomy, Tonsillectomy COPD, Emphysema Currently Using CPAP: No Currently Using BIPAP: No Cardiomyopathy, Coronary Artery Disease, Hypertension CASING 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 History: Hysterectomy UTI-Chronic Gastroesophageal Reflux, Gall Bladder Disease Cataract What Type of Treatment Did You: Surgical Intervention Anxiety, PTSD, Depression Blood Disorders: No Family Medical History No Pertinent Family Hx Review of Systems Constitutional: No chills; dizziness (upon sitting up ); No malaise Respiratory: No cough, No dyspnea on exertion Cardiovascular: No chest pain All Other Systems Reviewed Negative Unless Noted: Yes Physical Exam Physical Exam Vital Signs Vital Signs - First Documented 09/13/22 07:08 Temp 36.6 Pulse 55 Resp 20 B/P (MAP) 161/93 (115) Pulse Ox 95 O2 Delivery Room Air Capillary Refill : Less Than 3 Seconds Height, Weight, BMI Height: '" Weight: lbs. oz. kg; 27.69 BMI Method: General Appearance: No Apparent Distress, WD/WN HEENT: PERRL/EOMI Respiratory: Chest Non Tender, Lungs Clear, Normal Breath Sounds, No Accessory Muscle Use, No Respiratory Distress Cardiovascular: Regular Rate, Rhythm, No JVD, No Murmur Gastrointestinal: Normal Bowel Sounds, No Pulsatile Mass, Non Tender, Soft Extremity: Normal Capillary Refill, Normal Inspection, No Pedal Edema, Other (R. Knee wrapped from surgery. No signs of drainage ) Neurologic/Psychiatric: Alert, Oriented x3 Skin: Normal Color, Warm/Dry Lymphatic: No Adenopathy Results Results/Procedures Labs Patient resulted labs reviewed. Imaging: Reviewed Imaging Report Assessment/Plan Assessment and Plan Assess & Plan/Chief Complaint Right total knee arthroplasty CBC daily CMP daily Post op check - no complaints; RLE pulses 2+, sensation intact Right knee X-ray mobilize as able PT/OT Tramadol for pain COPD Emphysema Albuterol Incentive Spirometry Loratadine 10 mg PO Dilated Cardiomyopathy CAD HTN Metoprolol 50mg PO Losartan 100mg PO Continue home meds as indicated DVT Prophylaxis: Lovenox Code status: Full Disposition: Likely rehab pending pt status MARLENY BURNS DO 09/14/22 0611: HPI History of Present Illness: Source: patient, family Exam Limitations: no limitations Past Vlrebso-Abbxye-Flgmph Hx Patient Social History Marrital Status: single Employed/Student: retired Smoking Status: Never a Smoker Review of Systems Constitutional: see HPI Musculoskeletal: back pain, joint pain Physical Exam Physical Exam General Appearance: No Apparent Distress, WD/WN, Chronically ill Respiratory: Lungs Clear, Normal Breath Sounds Cardiovascular: Regular Rate, Rhythm Neurologic/Psychiatric: Alert, Oriented x3, No Motor/Sensory Deficits, Normal Mood/Affect Supervisory-Addendum Brief Verification & Attestation Participated in pt care: history, MDM, physical Personally performed: exam, history, MDM, supervision of care Care discussed with: Medical Student Procedures: n/a Results interpretation: Verified all documentation Verification and Attestation of Medical Student E/M Service A medical student performed and documented this service in my presence. I reviewed and verified all information documented by the medical student and made modifications to such information, when appropriate. I personally performed the physical exam and medical decision making. Marleny Burns, Sep 14, 2022,06:09 MERNA DE SOUZA Sep 13, 2022 14:00 MARLENY BURNS DO Sep 14, 2022 06:11
--- NOTE | 2022-09-13 14:35 | Physical Therapy Evaluation ---
PT Evaluation-General Medical Diagnosis Admission Date Sep 13, 2022 at 05:50 Medical Diagnosis: R TKA Onset Date: Sep 13, 2022 Therapy Diagnosis Therapy Diagnosis: Gait deficit, strength deficit Precautions Precautions/Isolations: Fall Prevention, Standard Precautions Weight Bear Status Right Lower Extremity: Right Weight Bearing/Tolerated Left Lower Extremity: Left Full Weight Bearing Referral Physician: Gael Reason for Referral: Evaluation/Treatment Medical History Reviewed History: Yes Social History Home: Single Level Current Living Status: Alone Entry Into Home: Stairs With Railing PT Steps Into Home: 6 Prior Prior Level of Function SCALE: Activities may be completed with or without assistive devices. 1-Rkivmjyyya-cczvptk completes the activity by him/herself with no assistance from a helper. 5-Set-up or Clean-up Assistance-helper sets up or cleans up; patient completes activity. Ider assists only prior to or following the activity. 4-Supervision or Touching Assistance-helper provides verbal cues and/or touching/steadying and/or contact guard assistance as patient completes activity. Assistance may be provided throughout the activity or intermittently. 3-Partial/Moderate Assistance-helper does LESS THAN HALF the effort. Ider lifts, holds or supports trunk or limbs, but provides less than half the effort. 2-Substantial/Maximal Assistance-helper does MORE THAN HALF the effort. Ider lifts or holds trunk or limbs and provides more than half the effort. 4-Gorepomej-vhedoc does ALL the effort. Patient does none of the effort to complete the activity. Or, the assistance of 2 or more helpers is required for the patient to complete the activity. If activity was not attempted, code reason: 7-Patient Refused. 9-Not Applicable-not attempted and the patient did not perform the activity before the current illness, exacerbation or injury. 10-Not Attempted due to Environmental Limitations-(lack of equipment, weather restraints, etc.). 88-Not Attempted due to Medical Conditions or Safety Concerns. Bed Mobility: 6 Transfers (B,C,W/C): 6 Gait: 6 Stairs: 6 Indoor Mobility (Ambulation): Independent Stairs: Independent Prior Devices Use: None PT Evaluation-Current Subjective Patient lying supine in bed upon PT arrival, son in the room, agreeable to treatment. Patient rates pain currently at 0/10. Objective Patient Orientation: Person, Place, Time, Situation Attachments: IV ROM/Strength ROM Lower Extremities Right knee 15 degrees from full extension, flexion 80 degrees. All other right LE and left LE ROMs WFLs Sensory Vision: Wears Glasses Hearing: Functional Sensation Right Lower Extremit: Intact Sensation Left Lower Extremity: Intact Transfers Roll Left to Right (QC): 4 Sit to Lying (QC): 4 Lying to Sitting/Side of Bed(Q: 4 Sit to Stand (QC): 4 Chair/Jta-su-Lykwr Xfer(QC): 4 Gait Does the Patient Walk?: Yes Mode of Locomotion: Walk Anticipated Mode of Locomotion: Walk Walk 10 feet (QC): 4 Walk 50 ft with 2 Turns(QC): 4 Distance: 100 Gait Assistive Device: FWW Assessment/Needs Patient tolerated treatment well. Performs all bed mobility and transfers with SBA. Patient ambulates 100 feet with FWW, with SBA and verbal cues for safety, progression, posture and conservation of energy. Patient ambulates with shortened left stride length, decreased stance time on right LE and is not able to achieve full right TKE. Patient in bed per her request post treatment with all needs met, nursing notified, call light in reach. Rehab Potential: Good PT Leader Tier Goals Assisted Goals PT Leader Tier Goals Time Frame: Oct 07, 2022 Roll Left & Right (QC): 6 Sit to Lying (QC): 6 Lying-Sitting on Side/Bed(QC): 6 Sit to Stand (QC): 6 Chair/Bkq-rs-Xhbng Xfer(QC): 6 Toilet Transfer (QC): 6 Does the Patient Walk: Yes Walk 10 feet (QC): 6 Walk 50ft with 2 Turns (QC): 6 Walk 150 ft (QC): 6 1 Step (curb) (QC): 4 4 Steps (QC): 4 12 Steps (QC): 4 PT Plan Problem List Problem List: Activity Tolerance, Functional Strength, Safety, Balance, Gait, Transfer, Bed Mobility, ROM Treatment/Plan Treatment Plan: Continue Plan of Care Treatment Plan: Bed Mobility, Education, Functional Activity Iveth, Functional Strength, Group Therapy, Gait, Safety, Therapeutic Exercise, Transfers Treatment Duration: Oct 07, 2022 Frequency: 11 times per week Estimated Hrs Per Day: .25 hour per day Patient and/or Family Agrees t: Yes Safety Risks/Education Patient Education: Gait Training, Transfer Techniques Teaching Recipient: Patient Teaching Methods: Demonstration, Discussion Response to Teaching: Verbalize Understanding, Return Demonstration Time Time In: 1410 Time Out: 1430 DATE: Sep 13, 2022 Total Billed Treatment Time: 20 Total Billed Treatment Visit, JAROCHO BRITO PT Sep 13, 2022 14:35
--- NOTE | 2022-09-13 16:13 | OPERATIVE REPORT ---
DATE OF SERVICE: 09/13/2022 PREOPERATIVE DIAGNOSIS: Right knee primary osteoarthritis. POSTOPERATIVE DIAGNOSIS: Right knee primary osteoarthritis. PROCEDURE: Right total knee arthroplasty. SURGEON: Fabrizio Alcantara MD PRODUCT/INDUSTRY CONSULTANT: Rony Melgar, who assisted throughout the procedure and closed the incision. ANESTHESIA: General endotracheal by Rony Garrett CRNA. TOURNIQUET TIME: 65 minutes at 300 mmHg. ESTIMATED BLOOD LOSS: Minimal. DRAINS: None. COMPLICATIONS: None. POSTOPERATIVE PLAN: Routine total knee arthroplasty protocol. The patient was transported to the recovery room awake and in stable condition. MATERIALS: Microport cemented size 4 femur, cemented size 5 tibia with 10 mm insert and cemented size 32 patellar button. STATEMENT OF MEDICAL NECESSITY: The patient is a 72-year-old female with longstanding progressive right knee pain. Radiographs revealed severe medial and patellofemoral osteoarthritis with complete loss of joint space. She tried rest, activity modifications, and anti-inflammatories without relief. Due to functional impairment and failure to improve with conservative measures, the patient elected to proceed with surgical intervention. DESCRIPTION OF PROCEDURE: After risks and benefits of the procedure were discussed and questions were answered and informed consent was signed and placed on the chart, the operative site was confirmed in the preoperative holding initialed by surgeon. The patient was then transferred to the operating room and after adequate levels of general endotracheal anesthetic were obtained, a timeout was called, confirming the operative site, the right lower extremity was prepped and draped in the usual sterile fashion with the leg elevated, tourniquet inflated to 300 mmHg. Standard anterior approach was utilized. Hemostasis was obtained with cautery. Medial parapatellar arthrotomy was performed, leaving 1 cm cuff on the patella for later reattachment. Portion of fat pad was resected. Subperiosteal release was performed of the proximal medial tibia, being careful to stay on the bony surface. The ACL was resected. Intramedullary guide was passed into the femoral canal. The distal cutting block was placed. Distal cut was made. The femur sized to a size 4. The 4 cutting block was placed parallel to the epicondylar axis and cuts were made from posterior to anterior. A subperiosteal release was then carefully performed on the posterior distal femur, being careful to stay on the bony surface. Intramedullary guide was then passed into the tibia. The cutting block was placed. The drop michael transected the intermalleolar axis and the cut was made. The 5 baseplate provided excellent coverage. This was pinned into position. Again, the drop michael transected the intermalleolar axis and this was prepared with the drill and keel punch. The femoral trial was placed and the trochlear cut was made. A 10 mm insert was placed. The patella was then prepared by resecting 10 mm off the under surface. The peg guide was placed and peg holes were drilled. The 32 trial was placed and knee was taken through range of motion. Full extension was easily obtained under 20 degrees of flexion with gravity was easily obtained. The patella tracked well. There is no anterior/posterior or medial/lateral laxity in flexion or extension. The trials were removed. The joint was irrigated with pulse lavage. Periarticular block was placed in the posterior capsule, medial and lateral retinaculum extensor mechanism and subcutaneous tissues. The bone ends were irrigated and dried. The tibial baseplate was cemented into position. Excessive cement was removed. The superior surface was irrigated and dried and the polyethylene insert was placed. The distal femur was irrigated and dried and the femoral prosthesis was cemented into position. Excessive cement was removed. The knee was brought out into full extension until cement cured. The undersurface of the patella was irrigated and dried and the patellar button was cemented into position and held until the cement cured. Once the cement cured, the knee was taken through range of motion. Full extension was easily obtained under 20 degrees of flexion with gravity was easily obtained. There was no anterior/posterior or medial/lateral laxity in flexion or extension. The joint was further irrigated with pulse lavage. The arthrotomy was closed with #2 Tevdek in qrzfnn-ze-qekrx interrupted fashion. Knee was flexed. The repair was stable. The subcutaneous tissues were irrigated. 0 Vicryl was used to deep subcutaneous tissue, 2-0 Vicryl for the superficial subcutaneous tissue, timi used on the skin and soft dressing was applied. Tourniquet was deflated and the patient was transferred to the recovery room in awake and stable condition. Job ID: [id number] DocumentID: [id number] Dictated Date: 09/13/2022 09:21:34 Repairer Handtools Date: 09/13/2022 16:11:00 Dictated By: FABRIZIO ALCANTARA MD
[2022-09-13] MEDS: CEFUROXIME INJECTION 750 MG in NS (IVPB) 50 ML IV SCH ×2 (17:07→23:05)
[2022-09-13] MEDS ORDERED: fentaNYL INJ 100 MCG/2 ML AMP IVP PRN (20:15)
[2022-09-13] MEDS: meTOproloL SUCCINATE 50 MG (TOPROL XL) TAB PO SCH (20:23)
[2022-09-13] MEDS: LOSARTAN 100 MG (COZAAR) TABLET PO SCH (20:23)
[2022-09-13] MEDS: FAMOTIDINE 20 MG (PEPCID) TABLET PO SCH (20:23)
[2022-09-13] MEDS: CALCIUM CARB + VIT D 600 MG (CALCARB + D) TAB PO SCH (20:25)
[2022-09-13] MEDS: LORATADINE (CLARITIN) 10 MG TAB PO SCH (20:25)
[2022-09-13] MEDS: OMEGA 3 (FISH OIL) 1000 MG CAP PO SCH (20:25)
[2022-09-13] MEDS: MULTIVIT W/MINERALS TAB (THERAGRAN M) PO SCH (20:26)
[2022-09-13] MEDS: KCL 10 MEQ TAB (MICRO K) PO SCH (20:26)
[2022-09-13] MEDS: traZODone 50 MG (DESYREL) TAB PO SCH (20:33)
[2022-09-13] MEDS ORDERED: NON-FORMULARY MEDICATION 1 EA EA (Vitamin B Complex 1 EACH) PO SCH (21:00)
[2022-09-13] MEDS ORDERED: NON-FORMULARY MEDICATION 1 EA EA (Magnesium Oxide 250 MG) PO SCH (21:00)
[2022-09-14 03:15] VITALS: BP 159/73
[2022-09-14] MEDS: ONDANSETRON 4 MG/2 ML (SDV) Z0FRAN IVP PRN ×5 (03:18→20:08)
[2022-09-14] MEDS: oxyCODONE/APAP 5/325MG (PERCOCET 5) TABLET PO PRN ×8 (03:19→22:01)
[2022-09-14 05:45] LABS: BASOPHILS % (AUTO) 0 % (0-10); EOSINOPHILS # (AUTO) 0.1 10^3/uL (0.0-0.3); EOSINOPHILS % (AUTO) 2 % (0-10); HEMATOCRIT 36 % (35-52); HEMOGLOBIN 11.9 g/dL (11.5-16.0); LYMPHOCYTES # (AUTO) 1.3 10^3/uL (1.0-4.0); LYMPHOCYTES % (AUTO) 18 % (12-44); MEAN CORPUSCULAR HEMOGLOBIN 30 pg (25-34); MEAN CORPUSCULAR HGB CONC 33 g/dL (32-36); MEAN CORPUSCULAR VOLUME 90 fL (80-99); MEAN PLATELET VOLUME 9.1 fL (9.0-12.2); MONOCYTES # (AUTO) 0.6 10^3/uL (0.0-1.0); MONOCYTES % (AUTO) 8 % (0-12); NEUTROPHILS % (AUTO) 71 % (42-75); PLATELET COUNT 182 10^3/uL (130-400)
[2022-09-14 06:00] LABS: ALBUMIN 3.3 GM/DL (3.2-4.5); POTASSIUM 4.1 MMOL/L (3.6-5.0)
[2022-09-14 06:01] LABS: CALCIUM 8.8 MG/DL (8.5-10.1)
[2022-09-14 06:03] LABS: TOTAL PROTEIN 5.7 GM/DL (6.4-8.2)
[2022-09-14 06:04] LABS: BILIRUBIN,TOTAL 0.7 MG/DL (0.1-1.0)
[2022-09-14 06:06] LABS: CREATININE SERUM 0.8 MG/DL (0.60-1.30)
[2022-09-14] MEDS: LEVOTHYROXINE 150 MCG (LEVOTHROID) TAB PO SCH (06:12)
[2022-09-14 07:16] VITALS: BP 168/79
--- NOTE | 2022-09-14 07:33 | Progress Note ---
MERNA DE SOUZA 09/14/22 0733: Subjective Date Seen by a Provider: Sep 14, 2022 Time Seen by a Provider: 07:31 Subjective/Events-last exam Ms. Guzman is a 72-year-old female with longstanding known osteoarthritis of her right knee with CAD, HTN, COPD, emphysema, hypothyroidism, and dilated cardiomyo edenilson. F/u on s/p Right TKA with no complications. At present patient is resting comfortably in bed. Pt reports that right knee nerve block wore off this morning so she has started to feel some pain. Pt reports a 6/10 pain that improves with pain medication. Pt says nausea has improved with zofran. Pt has been working with PT/OT. Notes she has not had a bowel movement today. Denies any CP, SOB, lightheadedness/dizziness, or weakness. Denies any new or worsening sx. No other complaints. Date Seen Objective Exam Last Set of Vital Signs Vital Signs Date Time Temp Pulse Resp B/P (MAP) Pulse Ox O2 Delivery O2 Flow Rate FiO2 09/14/22 07:16 36.8 64 18 168/79 (108) Room Air 09/14/22 03:15 95 09/13/22 10:00 10 Capillary Refill : Less Than 3 Seconds I&O Intake and Output 09/14/22 00:00 Intake Total 2340 ml Balance 2340 ml Intake Oral 1290 ml IV Total 1050 ml # Voids 3 General: Alert, Oriented X3 HEENT: EOMI Neck: Supple Abdomen: Normal Bowel Sounds, Soft, No Tenderness Extremities: No Clubbing, No Cyanosis, No Edema, Normal Pulses Skin: No Rashes, No Breakdown Neuro: Normal Speech Results Lab Laboratory Tests 09/14/22 05:16: White Blood Count 7.0, Red Blood Count 3.97, Hemoglobin 11.9, Hematocrit 36, Mean Corpuscular Volume 90, Mean Corpuscular Hemoglobin 30, Mean Corpuscular Hemoglobin Concent 33, Red Cell Distribution Width 12.6, Platelet Count 182, Mean Platelet Volume 9.1, Immature Granulocyte % (Auto) 0, Neutrophils (%) (A uto) 71, Lymphocytes (%) (Auto) 18, Monocytes (%) (Auto) 8, Eosinophils (%) (Auto) 2, Basophils (%) (Auto) 0, Neutrophils # (Auto) 5.0, Lymphocytes # (Auto) 1.3, Monocytes # (Auto) 0.6, Eosinophils # (Auto) 0.1, Basophils # (Auto) 0.0, Immature Granulocyte # (Auto) 0.0, Sodium Level 139, Potassium Level 4.1, Chloride Level 108H, Carbon Dioxide Level 23, Anion Gap 8, Blood Urea Nitrogen 11, Creatinine 0.80, Estimat Glomerular Filtration Rate 79, BUN/Creatinine Ratio 14, Glucose Level 91, Calcium Level 8.8, Corrected Calcium 9.4, Total Bilirubin 0.7, Aspartate Amino Transf (AST/SGOT) 33, Alanine Aminotransferase (ALT/SGPT) 34, Alkaline Phosphatase 51, Total Protein 5.7L, Albumin 3.3 Microbiology 09/13/22 MRSA Screen - Final, Complete MRSA not isolated Assessment/Plan Assessment/Plan Assess & Plan/Chief Complaint Right total knee arthroplasty CBC daily CMP daily Post op check - no complaints; RLE pulses 2+, sensation intact Right knee X-ray mobilize as able PT/OT Tramadol for pain Zofran prn COPD Emphysema Albuterol Incentive Spirometry Loratadine 10 mg PO Dilated Cardiomyopathy CAD HTN Metoprolol 50mg PO Losartan 100mg PO Continue home meds as indicated Disposition: Home tomorrow pending pt status with continued PT/OT MARLENY BURNS DO 09/15/22 0451: Supervisory-Addendum Brief Verification & Attestation Participated in pt care: history, MDM, physical Personally performed: exam, history, MDM, supervision of care Care discussed with: Medical Student Procedures: n/a Results interpretation: Verified all documentation Verification and Attestation of Medical Student E/M Service A medical student performed and documented this service in my presence. I reviewed and verified all information documented by the medical student and made modifications to such information, when appropriate. I personally performed the physical exam and medical decision making. Marleny Burns Sep 15, 2022,04:51 MERNA DE SOUZA Sep 14, 2022 07:33 MARLENY BURNS DO Sep 15, 2022 04:51
[2022-09-14] MEDS: ENOXAPARIN INJECTION 30 MG/0.3 ML SYR SC SCH ×3 (07:51→20:20)
[2022-09-14] MEDS: ASPIRIN E.C. 81 MG (ECOTRIN) TAB PO SCH (07:52)
[2022-09-14] MEDS: OMEGA 3 (FISH OIL) 1000 MG CAP PO SCH ×2 (07:52→20:20)
[2022-09-14] MEDS: meTOproloL SUCCINATE 50 MG (TOPROL XL) TAB PO SCH ×2 (07:52→20:20)
[2022-09-14] MEDS: SENNA W/DOCUSATE (SENOKOT S) TABLET PO SCH ×2 (07:52→20:20)
[2022-09-14] MEDS: DOCUSATE SODIUM 100 MG (COLACE) CAP PO SCH (07:53)
[2022-09-14] MEDS: NS IV 1000 ML 1,000 ML IV SCH ×2 (07:53→21:33)
--- NOTE | 2022-09-14 08:01 | Progress Note ---
Standard Progress Note Progress Notes/Assess & Plan Date Seen by a Provider: Sep 14, 2022 Time Seen by a Provider: 07:52 Progress/Assessment & Plan post op check no complaints radiographs--HW well positioned without fracture RLE--2 plus DP pulse with brisk cap refill intact DF and PF of toes and ankles sensation intact to light touch throughout s/p R TKA mobilize as able Final Diagnosis no complaints Vital Signs Date Time Temp Pulse Resp B/P (MAP) Pulse Ox O2 Delivery O2 Flow Rate FiO2 09/14/22 07:16 36.8 64 18 168/79 (108) Room Air 09/14/22 03:15 36.4 61 18 159/73 (101) 95 Room Air 09/13/22 23:10 36.7 64 18 145/73 (97) 95 Room Air 09/13/22 20:25 36.9 57 16 164/70 (101) 96 Room Air 09/13/22 20:15 Room Air 09/13/22 16:02 36.3 62 18 146/71 (96) 94 Room Air 09/13/22 11:00 35.7 64 16 141/67 (91) 92 Room Air 09/13/22 11:00 35.7 64 16 141/67 (91) 92 Room Air 09/13/22 10:15 Room Air 09/13/22 10:10 36.7 12 168/78 (108) 97 Room Air 09/13/22 10:00 Face Tent 10 09/13/22 10:00 10 169/80 (109) 100 Face Tent 10 09/13/22 09:50 13 173/83 (113) 100 Face Tent 10 09/13/22 09:45 Face Tent 10 09/13/22 09:40 13 168/79 (108) 100 Face Tent 10 09/13/22 09:30 20 166/83 (110) 100 Face Tent 10 09/13/22 09:30 Face Tent 10 09/13/22 09:18 36.0 16 161/86 (111) 100 Face Tent 10 09/13/22 09:18 Face Tent 10 I & O 09/14/22 07:00 Intake Total 2640 ml Balance 2640 ml Laboratory Tests Test 09/14/22 05:16 Range/Units White Blood Count 7.0 4.3-11.0 10^3/uL Red Blood Count 3.97 3.80-5.11 10^6/uL Hemoglobin 11.9 11.5-16.0 g/dL Hematocrit 36 35-52 % Mean Corpuscular Volume 90 80-99 fL Mean Corpuscular Hemoglobin 30 25-34 pg Mean Corpuscular Hemoglobin Concent 33 32-36 g/dL Red Cell Distribution Width 12.6 10.0-14.5 % Platelet Count 182 130-400 10^3/uL Mean Platelet Volume 9.1 9.0-12.2 fL Immature Granulocyte % (Auto) 0 % Neutrophils (%) (Auto) 71 42-75 % Lymphocytes (%) (Auto) 18 12-44 % Monocytes (%) (Auto) 8 0-12 % Eosinophils (%) (Auto) 2 0-10 % Basophils (%) (Auto) 0 0-10 % Neutrophils # (Auto) 5.0 1.8-7.8 10^3/uL Lymphocytes # (Auto) 1.3 1.0-4.0 10^3/uL Monocytes # (Auto) 0.6 0.0-1.0 10^3/uL Eosinophils # (Auto) 0.1 0.0-0.3 10^3/uL Basophils # (Auto) 0.0 0.0-0.1 10^3/uL Immature Granulocyte # (Auto) 0.0 0.0-0.1 10^3/uL Sodium Level 139 135-145 MMOL/L Potassium Level 4.1 3.6-5.0 MMOL/L Chloride Level 108 H 98-107 MMOL/L Carbon Dioxide Level 23 21-32 MMOL/L Anion Gap 8 5-14 MMOL/L Blood Urea Nitrogen 11 7-18 MG/DL Creatinine 0.80 0.60-1.30 MG/DL Estimat Glomerular Filtration Rate 79 BUN/Creatinine Ratio 14 Glucose Level 91 70-105 MG/DL Calcium Level 8.8 8.5-10.1 MG/DL Corrected Calcium 9.4 8.5-10.1 MG/DL Total Bilirubin 0.7 0.1-1.0 MG/DL Aspartate Amino Transf (AST/SGOT) 33 5-34 U/L Alanine Aminotransferase (ALT/SGPT) 34 0-55 U/L Alkaline Phosphatase 51 40-136 U/L Total Protein 5.7 L 6.4-8.2 GM/DL Albumin 3.3 3.2-4.5 GM/DL RLE--dressing intact NVI distally no calf tenderness s/p RTKA doing well PT/OT JUVENAL ALCANTARA MD Sep 14, 2022 08:01
[2022-09-14] MEDS: KCL 10 MEQ TAB (MICRO K) PO SCH ×2 (08:02→20:20)
[2022-09-14] MEDS: CALCIUM CARB + VIT D 600 MG (CALCARB + D) TAB PO SCH ×2 (08:05→21:33)
--- NOTE | 2022-09-14 08:07 | Anesthesia-Regional Post-Op ---
Regional Patient Condition Mental Status: Alert, Oriented x3 Circulation: Same as Pre-Op Headache: Absent Sensation: Full Recovery Motor Block: Absent Post Op Complications Complications None Follow Up Care/Instructions Patient Instructions None needed. Anesthesia/Patient Condition Patient is doing well, no complaints, stable vital signs, no apparent adverse anesthesia problems. No complications reported per nursing. SVEN NOLAND CRNA Sep 14, 2022 08:07
--- NOTE | 2022-09-14 08:07 | Anesthesia-General Post-Op ---
General Patient Condition Mental Status/LOC: Same as Preop Cardiovascular: Satisfactory Nausea/Vomiting: Absent Respiratory: Satisfactory Pain: Controlled Complications: Absent Post Op Complications Complications None Follow Up Care/Instructions Patient Instructions None needed. Anesthesia/Patient Condition Patient Condition Patient is doing well, no complaints, stable vital signs, no apparent adverse anesthesia problems. No complications reported per nursing. SVEN NOLAND CRNA Sep 14, 2022 08:07
[2022-09-14] MEDS: HYDROmorphone 2 MG/ML VIAL (DILAUDID) IVP PRN ×6 (09:54→22:02)
--- NOTE | 2022-09-14 10:47 | Physical Therapy Daily Note ---
PT Daily Note-Current Subjective Patient agrees to PT. Pain Section J - Health Conditions 1. Rarely or not at all 2. Occasionally 3. Frequently 4. Almost constantly 8. Unable to answer Pain Effect on Sleep: 1 Pain Interference with Therapy: 1 Pain Interference w/Day-to-Day: 1 Mental Status Patient Orientation: Normal For Age Attachments: IV Transfers SCALE: Activities may be completed with or without assistive devices. 9-Gthkejpjxx-rvcdgjv completes the activity by him/herself with no assistance from a helper. 5-Set-up or Clean-up Assistance-helper sets up or cleans up; patient completes activity. [place] assists only prior to or following the activity. 4-Supervision or Touching Assistance-helper provides verbal cues and/or touching/steadying and/or contact guard assistance as patient completes ac tivity. Assistance may be provided throughout the activity or intermittently. 3-Partial/Moderate Assistance-helper does LESS THAN HALF the effort. [place] lifts, holds or supports trunk or limbs, but provides less than half the effort. 2-Substantial/Maximal Assistance-helper does MORE THAN HALF the effort. [place] lifts or holds trunk or limbs and provides more than half the effort. 1-Qhxwvaqrl-apsisw does ALL the effort. Patient does none of the effort to complete the activity. Or, the assistance of 2 or more helpers is required for the patient to complete the activity. If activity was not attempted, code reason: 7-Patient Refused. 9-Not Applicable-not attempted and the patient did not perform the activity before the current illness, exacerbation or injury. 10-Not Attempted due to Environmental Limitations-(lack of equipment, weather restraints, etc.). 88-Not Attempted due to Medical Conditions or Safety Concerns. Lying to Sitting/Side of Bed(Q: 4 Sit to Stand (QC): 4 Chair/Bff-dr-Hbqtp Xfer(QC): 4 Toilet Transfer (QC): 4 Weight Bearing Right Lower Extremity: Right Weight Bearing/Tolerated Left Lower Extremity: Left Full Weight Bearing Gait Training Distance: 180' Walk 10 feet (QC): 4 Walk 50 ft with 2 Turns(QC): 4 Walk 150 ft (QC): 4 Gait Assistive Device: FWW slow, steady, functional gait sequence Exercises Supine Ex: Ankle pumps, Quad Set, Heel Slides, Straight leg raise Supine Reps: 15 Seated Therapy Exercises: Long arc quads Seated Reps: 15 Assessment Patient progressing with treatment plan and is up in recliner with needs met. PT to increase activity as tolerated by patient. PT Custodial Goals Custodial Goals PT Custodial Goals Time Frame: Oct 07, 2022 Roll Left & Right (QC): 6 Sit to Lying (QC): 6 Lying-Sitting on Side/Bed(QC): 6 Sit to Stand (QC): 6 Chair/Rgy-uf-Nuntz Xfer(QC): 6 Toilet Transfer (QC): 6 Does the Patient Walk: Yes Walk 10 feet (QC): 6 Walk 50ft with 2 Turns (QC): 6 Walk 150 ft (QC): 6 1 Step (curb) (QC): 4 4 Steps (QC): 4 12 Steps (QC): 4 PT Plan Treatment/Plan Treatment Plan: Continue Plan of Care Treatment Plan: Bed Mobility, Education, Functional Activity Iveth, Functional Strength, Group Therapy, Gait, Safety, Therapeutic Exercise, Transfers Treatment Duration: Oct 07, 2022 Frequency: 11 times per week Estimated Hrs Per Day: .25 hour per day Patient and/or Family Agrees t: Yes Time Time In: 830 Time Out: 854 DATE: Sep 14, 2022 Total Billed Treatment Time: 24 Total Billed Treatment 1 visit EX 14 min GT 10 min BLAIRE BARRIENTOS PT Sep 14, 2022 10:47
[2022-09-14 11:16] VITALS: BP 113/72
--- NOTE | 2022-09-14 11:20 | Occupational Therapy Eval ---
OT Evaluation-General/PLF Medical Diagnosis Admission Date Sep 13, 2022 at 05:50 Medical Diagnosis: R TKA Onset Date: Sep 13, 2022 Therapy Diagnosis Therapy Diagnosis: s/p RTKA Precautions Precautions/Isolations: Standard Precautions Weight Bear Status Weight Bearing Restriction: Weight Bearing/Tolerated Location Restriction: R LE Referral Physician: Gael Referral Reason: Self Care, Evaluation/Treatment Medical History Pertinent Medical History: OA Current History TKA Reviewed History: Yes Social History Home: Single Level Current Living Status: Alone Entry Into Home: Stairs With Railing Steps Into Home: 6 ADL-Prior Level of Function SCALE: Activities may be completed with or without assistive devices. 2-Onhozqlpgc-irqeqfl completes the activity by him/herself with no assistance from a helper. 5-Set-up or Clean-up Assistance-helper sets up or cleans up; patient completes activity. [place] assists only prior to or following the activity. 4-Supervision or Touching Assistance-helper provides verbal cues and/or touching/steadying and/or contact guard assistance as patient completes activity. Assistance may be provided throughout the activity or intermittently. 3-Partial/Moderate Assistance-helper does LESS THAN HALF the effort. [place] lifts, holds or supports trunk or limbs, but provides less than half the effort. 2-Substantial/Maximal Assistance-helper does MORE THAN HALF the effort. [place] lifts or holds trunk or limbs and provides more than half the effort. 2-Wxwtlkatx-plqssv does ALL the effort. Patient does none of the effort to complete the activity. Or, the assistance of 2 or more helpers is required for the patient to complete the activity. If activity was not attempted, code reason: 7-Patient Refused. 9-Not Applicable-not attempted and the patient did not perform the activity before the current illness, exacerbation or injury. 10-Not Attempted due to Environmental Limitations-(lack of equipment, weather restraints, etc.). 88-Not Attempted due to Medical Conditions or Safety Concerns. Self Care: Independent Functional Cognition: Independent Drive Self: Yes OT Current Status Subjective Up in chiar agreeable to OT, pain level higher than normal just finished PT and has IV pain meds. Pain Numeric Pain Scale: 7 Location: Right Location Body Site: Knee Mental Status/Objective Patient Orientation: Person, Place, Time, Situation Attachments: IV Current Upper Extremity ROM BUE ROM WFLS Upper Extremity Coordination intact Upper Extremity Sensation intact Upper Extremity Strength BUE WFLS +4/5 ADL-Treatment Eating (QC): 6 Oral Hygiene (QC): 6 Shower/Bathe Self (QC): 7 Upper Body Dressing (QC): 4 (d/t IV) Lower Body Dressing (QC): 5 (instruction for LB dressing sequences and use of ADS, home falafel cart cook provided to pt and instruciton for use provided) On/Off Footwear (QC): 5 Toileting Hygiene (QC): 6 Education OT Patient Education: Energy conservation, Modified ADL techniques, Rehab process, Safety issues, Use of adapted equipment Teaching Recipient: Patient Teaching Methods: Demonstration, Discussion Response to Teaching: Return Demonstration OT Retirement Goals Retirement Goals 1=Demonstrate adherence to instructed precautions during ADL tasks. 2=Patient will verbalize/demonstrate understanding of assistive devices/modifications for ADL. 3=Patient will improve strength/tolerance for activity to enable patient to perform ADL's. OT Education/Plan Problem List/Assessment Assessment: No Skilled OT Needs ID'd Discharge Recommendations Plan/Recommendations: Discontinue OT Treatment Plan/Plan of Care Treatment,Training & Education: Yes Patient would benefit from OT for education, treatment and training to promote independence in ADL's, mobility, safety and/or upper extremity function for ADL's. Plan of Care: OTHER (EVAL ONLY) Treatment Duration: Sep 14, 2022 Frequency: 1 time per week Rehab Potential: Good Nurse applying polar pack, al needs met Time Start Time: 10:00 Stop Time: 10:15 DATE: Sep 14, 2022 Total Time Billed (hr/min): 15 Billed Treatment Time EVL 15 min ZACKERY JACOBSON OT Sep 14, 2022 11:20
[2022-09-14] MEDS ORDERED: IBUPROFEN 600 MG (MOTRIN) TAB PO PRN (11:30)
[2022-09-14] MEDS: FAMOTIDINE 20 MG (PEPCID) TABLET PO SCH ×2 (11:39→20:20)
[2022-09-14] MEDS ORDERED: CYCLOBENZAPRINE 10 MG (FLEXERIL) TAB PO PRN (14:15)
--- NOTE | 2022-09-14 14:42 | Physical Therapy Daily Note ---
PT Daily Note-Current Subjective Patient reluctantly agrees to PT. Pain Section J - Health Conditions 1. Rarely or not at all 2. Occasionally 3. Frequently 4. Almost constantly 8. Unable to answer Pain Effect on Sleep: 4 Pain Interference with Therapy: 4 Pain Interference w/Day-to-Day: 4 Mental Status Patient Orientation: Normal For Age Attachments: Polar Pack, IV Transfers SCALE: Activities may be completed with or without assistive devices. 1-Rbujuarqrx-sqywfet completes the activity by him/herself with no assistance from a helper. 5-Set-up or Clean-up Assistance-helper sets up or cleans up; patient completes activity. [place] assists only prior to or following the activity. 4-Supervision or Touching Assistance-helper provides verbal cues and/or touching/steadying and/or contact guard assistance as patient completes activity. Assistance may be provided throughout the activity or intermittently. 3-Partial/Moderate Assistance-helper does LESS THAN HALF the effort. [place] lifts, holds or supports trunk or limbs, but provides less than half the effort. 2-Substantial/Maximal Assistance-helper does MORE THAN HALF the effort. [place] lifts or holds trunk or limbs and provides more than half the effort. 8-Eqnmxmcbd-dfyzxd does ALL the effort. Patient does none of the effort to complete the activity. Or, the assistance of 2 or more helpers is required for the patient to complete the activity. If activity was not attempted, code reason: 7-Patient Refused. 9-Not Applicable-not attempted and the patient did not perform the activity before the current illness, exacerbation or injury. 10-Not Attempted due to Environmental Limitations-(lack of equipment, weather restraints, etc.). 88-Not Attempted due to Medical Conditions or Safety Concerns. Sit to Stand (QC): 4 Chair/Lcx-fn-Qfomf Xfer(QC): 4 Weight Bearing Right Lower Extremity: Right Weight Bearing/Tolerated Left Lower Extremity: Left Full Weight Bearing Gait Training Distance: 150' Walk 10 feet (QC): 4 Walk 50 ft with 2 Turns(QC): 4 Walk 150 ft (QC): 4 Gait Assistive Device: FWW slow, steady gait sequence Exercises Supine Ex: Ankle pumps, Quad Set, Heel Slides Supine Reps: 10 Seated Therapy Exercises: Long arc quads Seated Reps: 10 Assessment Patient tolerated treatment well and is up in recliner with needs met. PT to continue to increase activity as tolerated by patient. PT Resp Therapist Goals Resp Therapist Goals PT Residential Goals Time Frame: Oct 07, 2022 Roll Left & Right (QC): 6 Sit to Lying (QC): 6 Lying-Sitting on Side/Bed(QC): 6 Sit to Stand (QC): 6 Chair/Yrt-iw-Wxcyq Xfer(QC): 6 Toilet Transfer (QC): 6 Does the Patient Walk: Yes Walk 10 feet (QC): 6 Walk 50ft with 2 Turns (QC): 6 Walk 150 ft (QC): 6 1 Step (curb) (QC): 4 4 Steps (QC): 4 12 Steps (QC): 4 PT Plan Treatment/Plan Treatment Plan: Continue Plan of Care Treatment Plan: Bed Mobility, Education, Functional Activity Iveth, Functional Strength, Group Therapy, Gait, Safety, Therapeutic Exercise, Transfers Treatment Duration: Oct 07, 2022 Frequency: 11 times per week Estimated Hrs Per Day: .25 hour per day Patient and/or Family Agrees t: Yes Time Time In: 1346 Time Out: 1409 DATE: Sep 14, 2022 Total Billed Treatment Time: 23 Total Billed Treatment 1 visit Ex 9 min GT 14 min BLAIRE BARRIENTOS PT Sep 14, 2022 14:42
[2022-09-14 16:31] VITALS: BP 142/87
[2022-09-14] MEDS: LOSARTAN 100 MG (COZAAR) TABLET PO SCH (20:20)
[2022-09-14 20:30] VITALS: BP 145/64
[2022-09-14] MEDS: MULTIVIT W/MINERALS TAB (THERAGRAN M) PO SCH (21:33)
[2022-09-14] MEDS: LORATADINE (CLARITIN) 10 MG TAB PO SCH (21:33)
[2022-09-14] MEDS: traZODone 50 MG (DESYREL) TAB PO SCH (22:01)
--- NOTE | 2022-09-14 23:09 | DISCHARGE SUMMARY ---
DIAGNOSES: 1. Right knee primary osteoarthritis. 2. Hypertension. 3. History of cardiomyopathy. 4. Dyslipidemia. 5. Coronary artery disease. 6. Depression. 7. Hypothyroidism. 8. Emphysema. PROCEDURE: Right total knee arthroplasty. SUMMARY: The patient is a 72-year-old female who underwent a right total knee arthroplasty on the day of admission. Postoperatively, she did well. At the time of discharge, her wound was clean and dry. She was tolerating diet well and tolerating pain with oral pain medication. CONDITION AT DISCHARGE: Good. DISCHARGE DIET: Regular. FOLLOWUP: Followup is in 3 weeks. ACTIVITIES: Weightbearing as tolerated with a walker. DISCHARGE MEDICATIONS: Home medications, Percocet as needed for pain and 1 aspirin per day for 4 weeks. Job ID: [id number] DocumentID: [id number] Dictated Date: 09/14/2022 08:06:32 Heating Plant Superintendent Date: 09/14/2022 23:07:00 Dictated By: JUVENAL ALCANTARA MD
[2022-09-15] VITALS: BP 167/73
[2022-09-15] MEDS: oxyCODONE/APAP 5/325MG (PERCOCET 5) TABLET PO PRN ×6 (00:07→11:18)
[2022-09-15] MEDS: HYDROmorphone 2 MG/ML VIAL (DILAUDID) IVP PRN ×4 (00:07→06:11)
[2022-09-15] MEDS: ONDANSETRON 4 MG/2 ML (SDV) Z0FRAN IVP PRN ×2 (02:09→06:12)
[2022-09-15 03:42] VITALS: BP 117/72
[2022-09-15 05:48] LABS: BASOPHILS % (AUTO) 1 % (0-10); EOSINOPHILS # (AUTO) 0.3 10^3/uL (0.0-0.3); EOSINOPHILS % (AUTO) 4 % (0-10); HEMATOCRIT 35 % (35-52); HEMOGLOBIN 11.9 g/dL (11.5-16.0); LYMPHOCYTES # (AUTO) 1.7 10^3/uL (1.0-4.0); LYMPHOCYTES % (AUTO) 27 % (12-44); MEAN CORPUSCULAR HEMOGLOBIN 31 pg (25-34); MEAN CORPUSCULAR HGB CONC 34 g/dL (32-36); MEAN CORPUSCULAR VOLUME 91 fL (80-99); MEAN PLATELET VOLUME 9.3 fL (9.0-12.2); MONOCYTES # (AUTO) 0.7 10^3/uL (0.0-1.0); MONOCYTES % (AUTO) 11 % (0-12); NEUTROPHILS # (AUTO) 3.4 10^3/uL (1.8-7.8); NEUTROPHILS % (AUTO) 56 % (42-75); PLATELET COUNT 181 10^3/uL (130-400); WHITE BLOOD COUNT 6.1 10^3/uL (4.3-11.0)
[2022-09-15 06:10] LABS: BILIRUBIN,TOTAL 0.8 MG/DL (0.1-1.0); CALCIUM 9.8 MG/DL (8.5-10.1); POTASSIUM 3.6 MMOL/L (3.6-5.0)
[2022-09-15] MEDS: LEVOTHYROXINE 150 MCG (LEVOTHROID) TAB PO SCH (06:11)
[2022-09-15 06:22] LABS: ALBUMIN 3.4 GM/DL (3.2-4.5); CREATININE SERUM 0.72 MG/DL (0.60-1.30)
--- NOTE | 2022-09-15 07:12 | Progress Note ---
Standard Progress Note Progress Notes/Assess & Plan Date Seen by a Provider: Sep 15, 2022 Time Seen by a Provider: 06:59 Progress/Assessment & Plan post op check no complaints radiographs--HW well positioned without fracture RLE--2 plus DP pulse with brisk cap refill intact DF and PF of toes and ankles sensation intact to light touch throughout s/p R TKA mobilize as able Final Diagnosis no complaints Laboratory Tests Test 09/15/22 05:28 Range/Units White Blood Count 6.1 4.3-11.0 10^3/uL Red Blood Count 3.90 3.80-5.11 10^6/uL Hemoglobin 11.9 11.5-16.0 g/dL Hematocrit 35 35-52 % Mean Corpuscular Volume 91 80-99 fL Mean Corpuscular Hemoglobin 31 25-34 pg Mean Corpuscular Hemoglobin Concent 34 32-36 g/dL Red Cell Distribution Width 12.7 10.0-14.5 % Platelet Count 181 130-400 10^3/uL Mean Platelet Volume 9.3 9.0-12.2 fL Immature Granulocyte % (Auto) 0 % Neutrophils (%) (Auto) 56 42-75 % Lymphocytes (%) (Auto) 27 12-44 % Monocytes (%) (Auto) 11 0-12 % Eosinophils (%) (Auto) 4 0-10 % Basophils (%) (Auto) 1 0-10 % Neutrophils # (Auto) 3.4 1.8-7.8 10^3/uL Lymphocytes # (Auto) 1.7 1.0-4.0 10^3/uL Monocytes # (Auto) 0.7 0.0-1.0 10^3/uL Eosinophils # (Auto) 0.3 0.0-0.3 10^3/uL Basophils # (Auto) 0.0 0.0-0.1 10^3/uL Immature Granulocyte # (Auto) 0.0 0.0-0.1 10^3/uL Sodium Level 138 135-145 MMOL/L Potassium Level 3.6 3.6-5.0 MMOL/L Chloride Level 107 98-107 MMOL/L Carbon Dioxide Level 24 21-32 MMOL/L Anion Gap 7 5-14 MMOL/L Blood Urea Nitrogen 9 7-18 MG/DL Creatinine 0.72 0.60-1.30 MG/DL Estimat Glomerular Filtration Rate 89 BUN/Creatinine Ratio 13 Glucose Level 96 70-105 MG/DL Calcium Level 9.8 8.5-10.1 MG/DL Corrected Calcium 10.3 H 8.5-10.1 MG/DL Total Bilirubin 0.8 0.1-1.0 MG/DL Aspartate Amino Transf (AST/SGOT) 33 5-34 U/L Alanine Aminotransferase (ALT/SGPT) 34 0-55 U/L Alkaline Phosphatase 50 40-136 U/L Total Protein 6.0 L 6.4-8.2 GM/DL Albumin 3.4 3.2-4.5 GM/DL Vital Signs Date Time Temp Pulse Resp B/P (MAP) Pulse Ox O2 Delivery O2 Flow Rate FiO2 09/15/22 03:42 36.3 65 16 117/72 (87) 94 Room Air 09/15/22 00:00 36.9 64 16 167/73 (104) 95 Room Air 09/14/22 20:30 37.3 70 16 145/64 (91) 96 Room Air 09/14/22 20:00 Room Air 09/14/22 16:31 36.0 60 19 142/87 (105) 95 Room Air 09/14/22 11:16 36.3 89 18 113/72 (86) 97 Room Air 09/14/22 08:00 Room Air 09/14/22 07:16 36.8 64 18 168/79 (108) Room Air I & O 09/15/22 07:00 Intake Total 2020 ml Balance 2020 ml RLE--incision clean and dry no calf tenderness neg Yvette's s/p RTKA doing well Dc after Pt today JUVENAL ALCANTARA MD Sep 15, 2022 07:12
[2022-09-15] MEDS: OMEGA 3 (FISH OIL) 1000 MG CAP PO SCH (07:56)
[2022-09-15] MEDS: KCL 10 MEQ TAB (MICRO K) PO SCH (07:56)
[2022-09-15] MEDS: DOCUSATE SODIUM 100 MG (COLACE) CAP PO SCH (07:57)
[2022-09-15] MEDS: SENNA W/DOCUSATE (SENOKOT S) TABLET PO SCH (07:57)
[2022-09-15] MEDS: CALCIUM CARB + VIT D 600 MG (CALCARB + D) TAB PO SCH (07:57)
[2022-09-15] MEDS: ASPIRIN E.C. 81 MG (ECOTRIN) TAB PO SCH (07:58)
[2022-09-15] MEDS: meTOproloL SUCCINATE 50 MG (TOPROL XL) TAB PO SCH (07:58)
[2022-09-15] MEDS: ENOXAPARIN INJECTION 30 MG/0.3 ML SYR SC SCH (07:58)
[2022-09-15 08:00] VITALS: BP 167/79
--- NOTE | 2022-09-15 10:09 | Physical Therapy Daily Note ---
PT Daily Note-Current Subjective Patient reports she has her pain under control today. Agrees to PT Pain Section J - Health Conditions 1. Rarely or not at all 2. Occasionally 3. Frequently 4. Almost constantly 8. Unable to answer Pain Effect on Sleep: 1 Pain Interference with Therapy: 1 Pain Interference w/Day-to-Day: 1 Mental Status Patient Orientation: Normal For Age Transfers SCALE: Activities may be completed with or without assistive devices. 2-Bxtbkcxsto-rorpskb completes the activity by him/herself with no assistance from a helper. 5-Set-up or Clean-up Assistance-helper sets up or cleans up; patient completes activity. [place] assists only prior to or following the activity. 4-Supervision or Touching Assistance-helper provides verbal cues and/or touching/steadying and/or contact guard assistance as patient completes activity. Assistance may be provided throughout the activity or intermittently. 3-Partial/Moderate Assistance-helper does LESS THAN HALF the effort. [place] lifts, holds or supports trunk or limbs, but provides less than half the effort. 2-Substantial/Maximal Assistance-helper does MORE THAN HALF the effort. [place] lifts or holds trunk or limbs and provides more than half the effort. 9-Tpyjsaivt-cfqnyn does ALL the effort. Patient does none of the effort to complete the activity. Or, the assistance of 2 or more helpers is required for the patient to complete the activity. If activity was not attempted, code reason: 7-Patient Refused. 9-Not Applicable-not attempted and the patient did not perform the activity before the current illness, exacerbation or injury. 10-Not Attempted due to Environmental Limitations-(lack of equipment, weather restraints, etc.). 88-Not Attempted due to Medical Conditions or Safety Concerns. Lying to Sitting/Side of Bed(Q: 6 Sit to Stand (QC): 6 Chair/Hsc-un-Jgvwh Xfer(QC): 6 Weight Bearing Right Lower Extremity: Right Weight Bearing/Tolerated Left Lower Extremity: Left Full Weight Bearing Gait Training Distance: 225' Walk 10 feet (QC): 5 Walk 50 ft with 2 Turns(QC): 5 Walk 150 ft (QC): 5 Gait Assistive Device: FWW Stair Training Stair Training: Handrails/: 1 handrail, uses walker #of Steps: 5 1 Step (curb) (QC): 4 4 Steps (QC): 4 Stairs: Pattern: Step to Exercises Supine Ex: Quad Set, Heel Slides, Straight leg raise Supine Reps: 12 Seated Therapy Exercises: Long arc quads Seated Reps: 15 Assessment Patient much improved on this date and will dismiss to home. Patient progressed with treatment plan and right LE ROM WFL with all mobility PT Fire Fighting Equipment Specialist Goals Fire Fighting Equipment Specialist Goals PT Fire Fighting Equipment Specialist Goals Time Frame: Oct 07, 2022 Roll Left & Right (QC): 6 Sit to Lying (QC): 6 Lying-Sitting on Side/Bed(QC): 6 Sit to Stand (QC): 6 Chair/Psj-rs-Tgipr Xfer(QC): 6 Toilet Transfer (QC): 6 Does the Patient Walk: Yes Walk 10 feet (QC): 6 Walk 50ft with 2 Turns (QC): 6 Walk 150 ft (QC): 6 1 Step (curb) (QC): 4 4 Steps (QC): 4 12 Steps (QC): 4 PT Plan Treatment/Plan Treatment Plan: Discontinue PT Treatment Plan: Bed Mobility, Education, Functional Activity Iveth, Functional Strength, Group Therapy, Gait, Safety, Therapeutic Exercise, Transfers Treatment Duration: Oct 07, 2022 Frequency: 11 times per week Estimated Hrs Per Day: .25 hour per day Patient and/or Family Agrees t: Yes Time Time In: 730 Time Out: 753 DATE: Sep 15, 2022 Total Billed Treatment Time: 23 Total Billed Treatment 1 visit FA x 2 23 min BLAIRE BARRIENTOS PT Sep 15, 2022 10:08
--- NOTE | 2022-09-15 10:50 | Progress Note ---
Subjective Date Seen by a Provider: Sep 15, 2022 Time Seen by a Provider: 11:00 Subjective/Events-last exam Doing well Pain controlled Walking well DC today Review of Systems General: Fatigue, Malaise Musculoskeletal: leg pain Objective Exam Last Set of Vital Signs Vital Signs Date Time Temp Pulse Resp B/P (MAP) Pulse Ox O2 Delivery O2 Flow Rate FiO2 09/15/22 08:00 Room Air 09/15/22 08:00 36.9 65 18 167/79 (108) 93 09/13/22 10:00 10 Capillary Refill : Less Than 3 Seconds I&O Intake and Output 09/15/22 00:00 Intake Total 1920 ml Balance 1920 ml Intake Oral 1920 ml # Voids 8 General: Alert, Oriented X3, Cooperative, No Acute Distress Lungs: Clear to Auscultation, Normal Air Movement Heart: Regular Rate, Normal S1, Normal S2, No Murmurs Psych/Mental Status: Mental Status NL, Mood NL Results Lab Laboratory Tests 09/15/22 05:28: White Blood Count 6.1, Red Blood Count 3.90, Hemoglobin 11.9, Hematocrit 35, Mean Corpuscular Volume 91, Mean Corpuscular Hemoglobin 31, Mean Corpuscular Hemoglobin Concent 34, Red Cell Distribution Width 12.7, Platelet Count 181, Mean Platelet Volume 9.3, Immature Granulocyte % (Auto) 0, Neutrophils (%) (Auto) 56, Lymphocytes (%) (Auto) 27, Monocytes (%) (Auto) 11, Eosinophils (%) (Auto) 4, Basophils (%) (Auto) 1, Neutrophils # (Auto) 3.4, Lymphocytes # (Auto) 1.7, Monocytes # (Auto) 0.7, Eosinophils # (Auto) 0.3, Basophils # (Auto) 0.0, Immature Granulocyte # (Auto) 0.0, Sodium Level 138, Potassium Level 3.6, Chloride Level 107, Carbon Dioxide Level 24, Anion Gap 7, Blood Urea Nitrogen 9, Creatinine 0.72, Estimat Glomerular Filtration Rate 89, BUN/Creatinine Ratio 13, Glucose Level 96, Calcium Level 9.8, Corrected Calcium 10.3H, Total Bilirubin 0.8, Aspartate Amino Transf (AST/SGOT) 33, Alanine Aminotransferase (ALT/SGPT) 34, Alkaline Phosphatase 50, Total Protein 6.0L, Albumin 3.4 Microbiology 09/13/22 MRSA Screen - Final, Complete MRSA not isolated Assessment/Plan Assessment/Plan Assess & Plan/Chief Complaint [facility] JAZMYN BURNS DO Sep 15, 2022 10:50
[2022-09-15] MEDS: FAMOTIDINE 20 MG (PEPCID) TABLET PO SCH (11:18)
[2022-09-15 11:46] VITALS: BP 167/79
== END 2022-09-15 11:40 | disposition home health service (06) | DRG 470 ==
LOC: 4TH 05:50 → SURG 05:51 → EDSTATUS 09:00 → 4TH 10:21
PROVIDERS: ADMIT Orthopaedic Surgery; ATTEND Orthopaedic Surgery
PROC: 0SRC0J9 Replacement of Right Knee Joint with Synthetic Substitute, Cemented, Open Approach (ICD-10-PCS; principal; 2022-09-13 07:39)
DX: M17.11 Unilateral primary osteoarthritis, right knee (principal); I42.0 Dilated cardiomyopathy; I10 Essential (primary) hypertension; E78.5 Hyperlipidemia, unspecified; I25.10 Atherosclerotic heart disease of native coronary artery without angina pectoris; F32.A Depression, unspecified; E03.9 Hypothyroidism, unspecified; J43.9 Emphysema, unspecified; Z87.891 Personal history of nicotine dependence; K21.9 Gastro-esophageal reflux disease without esophagitis; F43.10 Post-traumatic stress disorder, unspecified
CPT/HCPCS: 36415; 73560; 80053; 85025; 87081